=== PATIENT | male | born 1955 | race African-American/Black ===

== ENCOUNTER 2019-09-04 10:12 | Inpatient (IN) | payer MEDICARE, MEDICAID ==
[~2019-09-04] VITALS: Ht 167.6 cm; Wt 70.1 kg
--- NOTE | 2019-09-04 10:30 | Emergency Room Report ---
History of Present Illness General Chief Complaint: To Be Triaged Source: Patient Present Illness HPI 64-year-old male pretension, GERD, COPD, and AIDS, last CD4 count of 531, viral load less than 20, according to labs drawn on July 31, 2019, which was 1 month ago, comes to the ER for complaints of shortness of breath and chest pain for 1 week. He reports the chest pain is like an ache, wrapped his anterior chest, with associated cough with clear sputum production, he is not trying medications for symptoms, but reports he feels like his GERD is acting up because his doctor took him off his omeprazole 1 month ago. He denies fevers, hemoptysis, syncope, leg swelling, any other symptoms. Allergies: Uncoded Allergies: POLLEN (Allergy, Unknown, 09/04/19) Patient History Past Medical History: see triage record Reviewed Nursing Documentation: PMH: Agreed; PSxH: Agreed Review of Systems All Other Systems: negative except mentioned in HPI Physical Exam Sp02 EP Interpretation: reviewed, normal General Appearance: no apparent distress, alert, non-toxic Head: normocephalic Eyes: bilateral eye normal inspection, bilateral eye PERRL, bilateral eye EOMI ENT: normal ENT inspection, hearing grossly normal, normal pharynx, no angioedema, normal voice, moist mucus membranes Neck: normal inspection, full range of motion, supple, supple/symm/no masses Respiratory: chest non-tender, lungs clear, normal breath sounds, chest symmetrical, palpation of chest normal Cardiovascular #1: normal peripheral pulses, regular rate, rhythm Cardiovascular #2: 2+ radial (R), 2+ radial (L) Gastrointestinal: normal inspection, non tender, soft, no mass, no guarding, no rebound Rectal: deferred Genitourinary: normal inspection, no CVA tenderness Musculoskeletal: back normal, normal range of motion, no calf tenderness, gait/ station normal, Keron's Sign negative, non-tender Neurologic: alert, motor strength/tone normal, 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 EKG, chest x-ray unremarkable , do not have high suspicion for dissection or pulmonary embolism. Patient with GERD-like symptoms here, will give famotidine, aspirin, admit as initial work-up unremarkable except for creatinine 1.8 but troponin negative. Discussed with Dr. Arenas who agrees to admit to telemetry EKG Diagnostic Results EKG Time: 10:43 EP Interpretation: no stemi Rate: normal Rhythm: NSR ST Segments: no acute changes ASA given to the pt in ED: Yes Rhythm Strip Diag. Results Rhythm Strip Time: 11:25 EP Interpretation: yes Rate: 84 Rhythm: NSR, no PVC's, no ectopy Chest X-Ray Diagnostic Results Chest X-Ray Diagnostic Results : Chest X-Ray Ordered: Yes # of Views/Limited/Complete: 1 View Indication: Chest Pain EP Interpretation: Yes Interpretation: no consolidation, no effusion, no pneumothorax, no acute cardiopulmonary disease Impression: No acute disease Electronically Signed by: Payton Peace MD Disposition: ADMITTED INPATIENT Condition: Stable PAYTON PEACE M.D Sep 04, 2019 10:30
--- NOTE | 2019-09-04 10:33 | NUR ---
ED Nurse Note: ERMD assessing pt at triage.
--- NOTE | 2019-09-04 10:45 | NUR ---
ED Nurse Note: Pt walked into ER from home c/o cough, chest pain 03/28, and n/v. A+OX4. Patient states he has had the chest pain for about a week and the n/v for two days. He states that he has been having gastric reflux that turns into vomiting when he lays down or coughs. No SOB noted. Respirations are even and unlabored on room air. 20 g IV inserted to Right AC. EKG done. Labs sent down to lab. shelf filler applied.
[2019-09-04 11:06] VITALS: BP 121/87
[2019-09-04 11:06] LABS: BASOPHILS % (AUTO) 1.8 % (0.0-2.0); EOSINOPHILS % (AUTO) 1.3 % (0.0-3.0); HEMATOCRIT 50.7 % (42.0-52.0); HEMOGLOBIN 16.4 G/DL (14.2-18.0); LYMPHOCYTES % (AUTO) 37.5 % (20.0-45.0); MEAN CORPUSCULAR VOLUME 87 FL (80-99); MONOCYTES % (AUTO) 14.2 % (1.0-10.0); NEUTROPHILS % (AUTO) 45.2 % (45.0-75.0); PLATELET COUNT 216 K/UL (150-450); RED BLOOD COUNT 5.83 M/UL (4.70-6.10); RED CELL DISTRIBUTION WIDTH 10.8 % (11.6-14.8); WHITE BLOOD COUNT 5.2 K/UL (4.8-10.8)
[2019-09-04 11:13] LABS: ANION GAP 7 mmol/L (5-15); BLOOD UREA NITROGEN 22 mg/dL (7-18); CALCIUM 9.4 MG/DL (8.5-10.1); CARBON DIOXIDE 29 MMOL/L (21-32); CHLORIDE 102 MMOL/L (98-107); CREATININE 1.8 MG/DL (0.55-1.30); POTASSIUM 3.8 MMOL/L (3.5-5.1); SODIUM 138 MMOL/L (136-145)
[2019-09-04 11:20] LABS: ALANINE AMINOTRANSFERASE 18 U/L (12-78); ALBUMIN 4.2 G/DL (3.4-5.0); ALBUMIN/GLOBULIN RATIO 1.1 (1.0-2.7); ALKALINE PHOSPHATASE 84 U/L (46-116); ASPARTATE AMINO TRANSFERASE 14 U/L (15-37); BILIRUBIN,TOTAL 0.5 MG/DL (0.2-1.0)
--- NOTE | 2019-09-04 11:33 | Diagnostic Imaging Report ---
Indication: Chest pain Technique: One view of the chest Comparison: none Findings: Lungs and pleural spaces are clear. Heart size is normal. Impression: No acute process
--- NOTE | 2019-09-04 11:55 | NUR ---
ED Nurse Note: Per MD, water okay to give to patient. Water provided.
[2019-09-04] MEDS ORDERED: Aspirin Baby 81mg NG SCH (12:45)
--- NOTE | 2019-09-04 13:35 | NUR ---
ED Nurse Note: Report given to CHARLES Cortez. Patient brought up to unit with all belongings. Plan of care endorsed. Pt in stable condition.
[2019-09-04 13:38] VITALS: BP 125/92
[2019-09-04] MEDS ORDERED: TIVICAY50 MG ORAL (13:41)
[2019-09-04] MEDS ORDERED: LISINOPRIL10 MG ORAL (13:41)
[2019-09-04] MEDS ORDERED: METOPROLOL SUCC25 MG ORAL (13:41)
[2019-09-04] MEDS ORDERED: VITAMIN D31000 UNI4 PO (13:41)
[2019-09-04] MEDS ORDERED: ASPIRIN EC81 MG ORAL (13:41)
[2019-09-04] MEDS ORDERED: CHLORTHALIDONE25 MG ORAL (13:41)
[2019-09-04] MEDS ORDERED: PREZCOBIX 8001 EACH PO (13:41)
[2019-09-04] MEDS ORDERED: LATANOPROST 0.7.5 ML OP (13:43)
[2019-09-04] MEDS ORDERED: VENTOLIN HFA18 GM INH (13:43)
[2019-09-04] MEDS ORDERED: AZELASTINE137 MCG/0. NS (13:43)
[2019-09-04] MEDS ORDERED: VESICARE5 MG ORAL (13:43)
[2019-09-04] MEDS ORDERED: CRESTOR40 MG ORAL (13:43)
[2019-09-04] MEDS ORDERED: COMBIVENT RESPIM4 GM IH (13:43)
[2019-09-04] MEDS ORDERED: SIMBRINZA 1%-0.28 ML OP (13:43)
--- NOTE | 2019-09-04 13:50 | NUR ---
NURSE NOTES: Pt transferred from ED via gurney with RN and rehab technician. No c/o pain. Mild SOB noted. Noted the patient waling steady without assist. Bed in lowest position and locked. Side railsx2 up for safety. Call light within easy reach. Report received from Cristhian SOTO form ED. IV in RAC 20G SL patent and asymptomatic. Will continue to plan of care.
[2019-09-04 13:55] VITALS: BP 128/95
[2019-09-04] MEDS ORDERED: Azithromycin 250mg tab ORAL SCH (14:30)
[2019-09-04] MEDS ORDERED: Acetaminophen 500mg (ES) tab ORAL PRN (14:30)
--- NOTE | 2019-09-04 15:00 | Consultation ---
Consult Note Consult Note asked to eval at the request of dr roberts for elevated Cr 64-year-old male pretension, GERD, COPD, and AIDS, last CD4 count of 531, viral load less than 20, according to labs drawn on July 31, 2019, which was 1 month ago, comes to the ER for complaints of shortness of breath and chest pain for 1 week. He reports the chest pain is like an ache, wrapped his anterior chest, with associated cough with clear sputum production, he is not trying medications for symptoms, but reports he feels like his GERD is acting up because his doctor took him off his omeprazole 1 month ago. He denies fevers, hemoptysis, syncope, leg swelling, any other symptoms. Allergies: Uncoded Allergies: POLLEN (Allergy, Unknown, 09/04/19) interviewed data reviewed examined . Assessment/Plan Renal failure ? acute on chronic GERD COPD AIDS AZUL and Echo Urine studies UA per pulmonary monitor renal parameters per orders Luis Fernando Gasca MD Sep 04, 2019 15:00
[2019-09-04] MEDS: cefTRIAXone 1 GM in D5W 55 ML IVPB SCH (15:18)
[2019-09-04] MEDS: Solu-MEDROL 40mg Inj IVP SCH ×2 (15:18→21:18)
[2019-09-04] MEDS: Albuterol/Ipratropium 3ml neb HHN SCH ×2 (15:25→20:16)
[2019-09-04 16:00] VITALS: BP 131/94
--- NOTE | 2019-09-04 17:10 | NUR ---
NURSE NOTES: Dominic Pepe paged for clarification orders for patient's meds for HIV. Dominic Pepe. stated "Read my note". But no note or progress note available on the EMAR. Reminded the doctor there is no progress note available on the EMAR. Dr. Fajardo states "Have the family bring the meds from home. RN explained that no family or friend is available and the patient lives alone at home. He is upset that the RN called for clarification orders. Spoke to Pearl, pharmacist regarding the meds, will follow up the meds tomorrow from the patient's own primary doctor who prescribed the meds.
[2019-09-04] MEDS ORDERED: Darunavir 600mg tab ORAL SCH (18:00)
--- NOTE | 2019-09-04 19:20 | NUR ---
HAND-OFF: Report given to Bo SOTO. Pt remains stable.
--- NOTE | 2019-09-04 19:25 | NUR ---
NURSE NOTES: Pt received from Min, RN alert and oriented x4 with no acute s/s of distress noted. IV site asymptomatic and patent, on R ac 20g, saline lock. Bed in lowest position. Call light and belongings within reach.
[2019-09-04 20:00] VITALS: BP 125/89
--- NOTE | 2019-09-04 20:51 | NUR ---
NURSE NOTES: Pt c/o of cough and asking for cough syrup or throat lozenge for relief. Spoke with Dr. Orlando who gave order for Robitussin DM 10 ml PRN q4h for cough.
[2019-09-04] MEDS: Heparin 5000 units/ml inj SUBQ SCH (21:00)
--- NOTE | 2019-09-04 21:15 | Consultation ---
DATE OF CONSULTATION: 09/04/2019 INFECTIOUS DISEASE CONSULTATION REASON FOR CONSULT: Chronic obstructive pulmonary disease exacerbation and human immunodeficiency virus. HISTORY OF PRESENT ILLNESS: This is a 64-year-old male admitted today from home complaining of shortness of breath, coughing, chest pain for 7 days. He has history of human immunodeficiency virus, but it is in good control with a CD4 count of more than 500. Also has history of coronary artery disease. PAST MEDICAL HISTORY: Includes human immunodeficiency virus since 1990. The patient is currently getting Prezcobix and Tivicay. The last CD4 count is above 500 and a viral load is undetectable. Has chronic kidney disease, has had history of coronary artery disease, status post angioplasty. He says that he has history of gastroesophageal reflux disease. MEDICATIONS: Aspirin. ALLERGIES: Allergic to . SOCIAL HISTORY: Single. Smoking 10 cigarettes a day. Smokes marijuana. Denies other drugs and alcohol abuse. REVIEW OF SYSTEMS: No fever. No chills. Has nonproductive cough and shortness of breath and left-sided chest pain. No nausea. No vomiting. No diarrhea. No problem passing urine. VACCINATION HISTORY: He has history of flu vaccination this year and pneumonia vaccination in 2017. He also had herpes zoster vaccination. PHYSICAL EXAMINATION: VITAL SIGNS: Temperature 97.7, blood pressure 125/92, and pulse 82. GENERAL APPEARANCE: No acute distress. HEAD AND NECK: [place] conjunctiva. HEART: Normal rate. LUNGS: Clear. ABDOMEN: Soft and nontender. EXTREMITY: He has no edema. NEUROLOGIC: Awake, alert, and oriented x3. LABORATORY AND DIAGNOSTIC DATA: WBC 5.2, hemoglobin 16.4, hematocrit 50.7, and platelets is 216,000. Sodium 138, potassium 3.8, chloride 102, bicarbonate 29, BUN 22, creatinine 1.8, and glucose 100. Albumin is 4.2. IMPRESSION: 1. COPD exacerbation. 2. Human immunodeficiency virus. 3. Nicotine dependence. 4. Chest pain. 5. Kidney disease, likely chronic. 6. History of coronary artery disease. RECOMMENDATIONS: Continue Tivicay and substitute Prezista for Prezcobix. The patient may benefit from short term antibiotic with Zithromax and Rocephin for COPD. Needs to have a smoking cessation. At the end of my exam, I thank Dr. Arenas for involving me in the care of this patient. Mario Fajardo M.D. DR: DANIEL JOB#: [id number] CC:
[2019-09-04] MEDS: Latanoprost 0.005% Opth 2.5ml Soln BOTH EYES SCH (21:17)
[2019-09-04] MEDS: Guaifenesin/DM 10ml syrup ORAL PRN (21:17)
--- NOTE | 2019-09-04 22:30 | Cardiology Progress Note ---
Assessment/Plan Assessment/Plan The patient is seen and examined, full consult note is dictated. Objective Last 24 Hour Vital Signs Date Time Temp Pulse Resp B/P (MAP) Pulse Ox O2 Delivery O2 Flow Rate FiO2 09/04/19 20:16 85 18 100 Room Air 21 82 18 99 09/04/19 16:00 94 09/04/19 16:00 97.1 68 20 131/94 (106) 97 09/04/19 15:27 85 20 100 Room Air 21 88 18 98 09/04/19 14:02 Room Air 09/04/19 13:55 97.0 70 20 128/95 (106) 98 09/04/19 13:38 97.7 82 18 125/92 100 Room Air 09/04/19 13:35 97.7 90 18 121/87 99 Room Air 09/04/19 11:06 97.7 90 18 121/87 99 Room Air 09/04/19 11:05 90 18 Room Air 09/04/19 10:28 97.7 99 21 120/70 (87) 99 Room Air Laboratory Tests Test 09/04/19 10:45 09/04/19 22:00 White Blood Count 5.2 K/UL (4.8-10.8) Red Blood Count 5.83 M/UL (4.70-6.10) Hemoglobin 16.4 G/DL (14.2-18.0) Hematocrit 50.7 % (42.0-52.0) Mean Corpuscular Volume 87 FL (80-99) Mean Corpuscular Hemoglobin 28.2 PG (27.0-31.0) Mean Corpuscular Hemoglobin Concent 32.4 G/DL (32.0-36.0) Red Cell Distribution Width 10.8 % (11.6-14.8) L Platelet Count 216 K/UL (150-450) Mean Platelet Volume 8.1 FL (6.5-10.1) Neutrophils (%) (Auto) 45.2 % (45.0-75.0) Lymphocytes (%) (Auto) 37.5 % (20.0-45.0) Monocytes (%) (Auto) 14.2 % (1.0-10.0) H Eosinophils (%) (Auto) 1.3 % (0.0-3.0) Basophils (%) (Auto) 1.8 % (0.0-2.0) Sodium Level 138 MMOL/L (136-145) Potassium Level 3.8 MMOL/L (3.5-5.1) Chloride Level 102 MMOL/L (98-107) Carbon Dioxide Level 29 MMOL/L (21-32) Anion Gap 7 mmol/L (5-15) Blood Urea Nitrogen 22 mg/dL (7-18) H Creatinine 1.8 MG/DL (0.55-1.30) H Estimat Glomerular Filtration Rate 38.4 mL/min (>60) Glucose Level 100 MG/DL (74-106) Calcium Level 9.4 MG/DL (8.5-10.1) Total Bilirubin 0.5 MG/DL (0.2-1.0) Aspartate Amino Transf (AST/SGOT) 14 U/L (15-37) L Alanine Aminotransferase (ALT/SGPT) 18 U/L (12-78) Alkaline Phosphatase 84 U/L (46-116) Troponin I 0.000 ng/mL (0.000-0.056) Total Protein 7.9 G/DL (6.4-8.2) Albumin 4.2 G/DL (3.4-5.0) Globulin 3.7 g/dL Albumin/Globulin Ratio 1.1 (1.0-2.7) Urine Color Pending Urine Appearance Pending Urine pH Pending Urine Specific [place] Pending Urine Protein Pending Urine Glucose (UA) Pending Urine Ketones Pending Urine Blood Pending Urine Nitrite Pending Urine Bilirubin Pending Urine Urobilinogen Pending Urine Leukocyte Esterase Pending Urine RBC Pending Urine WBC Pending Urine Squamous Epithelial Cells Pending Urine Bacteria Pending Urine Random Sodium Pending Urine Opiates Screen Pending Urine Barbiturates Screen Pending Phencyclidine (PCP) Screen Pending Urine Amphetamines Screen Pending Urine Benzodiazepines Screen Pending Urine Cocaine Screen Pending Urine Marijuana (THC) Screen Pending Microbiology Date/Time Source Procedure Growth Status 09/04/19 17:00 Nasal Nares - Final Complete 09/04/19 17:00 Nasal Nares - Final Complete Nirmal Chapa MD Sep 04, 2019 22:30
[2019-09-04 22:32] LABS: APPEARANCE,URINE CLEAR; BILIRUBIN, URINE NEGATIVE (NEGATIVE); GLUCOSE, URINE (UA) NEGATIVE (NEGATIVE); KETONES,URINE NEGATIVE (NEGATIVE); LEUKOCYTE ESTERASE ,URINE NEGATIVE (NEGATIVE); NITRITE,URINE NEGATIVE (NEGATIVE); PH,URINE 7 (4.5-8.0); PROTEIN,URINE 1+ (NEGATIVE); UROBILINOGEN,URINE 4 MG/DL (0.0-1.0)
[2019-09-04 22:34] LABS: COLOR,URINE YELLOW
--- NOTE | 2019-09-04 22:40 | NUR ---
NURSE NOTES: Communicated with Dr. Chapa that pt is on rosuvastatin 40 mg PO at bedtime at home but is not continued per EMR d/t nonavailability of med in inpatient pharmacy. Per Dr. Chapa, pls place patient on atorvastatin 80 mg PO at bedside to substitute. Will carry out orders.
--- NOTE | 2019-09-04 22:43 | NUR ---
NURSE NOTES: Dr. Arenas made aware of positive urine drug tox screen for Marijuana. No new orders given.
[2019-09-05] VITALS: BP 131/93
[2019-09-05] MEDS: Albuterol/Ipratropium 3ml neb HHN SCH ×5 (01:34→23:46)
[2019-09-05 04:00] VITALS: BP 122/71
--- NOTE | 2019-09-05 05:25 | NUR ---
NURSE NOTES: Pt c/o of acid reflux, communicated with Dr. Arenas who gave order for Mylanta 30 ml PO q4h PRN for heartburn. Will carry out orders.
[2019-09-05] MEDS: Solu-MEDROL 40mg Inj IVP SCH ×3 (05:53→21:18)
--- NOTE | 2019-09-05 07:20 | NUR ---
HAND-OFF: Report given to CHARLES Beaulieu. Plan of care endorsed.
--- NOTE | 2019-09-05 07:30 | NUR ---
NURSE NOTES: received patient report from deep kline. patient is on bed awake. no tin acute distress. bed is low and locked for safety. will fou on patients HIV meds. will follow plan of care.
[2019-09-05 07:34] LABS: BASOPHILS % (AUTO) 0.4 % (0.0-2.0); HEMATOCRIT 45.3 % (42.0-52.0); HEMOGLOBIN 15.2 G/DL (14.2-18.0); MEAN CORPUSCULAR VOLUME 86 FL (80-99); MONOCYTES % (AUTO) 3.3 % (1.0-10.0); NEUTROPHILS % (AUTO) 81.3 % (45.0-75.0); PLATELET COUNT 199 K/UL (150-450); RED BLOOD COUNT 5.24 M/UL (4.70-6.10); RED CELL DISTRIBUTION WIDTH 10.6 % (11.6-14.8); WHITE BLOOD COUNT 6.3 K/UL (4.8-10.8)
[2019-09-05 08:00] VITALS: BP 149/115
[2019-09-05 08:11] LABS: ALANINE AMINOTRANSFERASE 15 U/L (12-78); ALBUMIN 3.8 G/DL (3.4-5.0); ALKALINE PHOSPHATASE 67 U/L (46-116); ANION GAP 7 mmol/L (5-15); ASPARTATE AMINO TRANSFERASE 9 U/L (15-37); BILIRUBIN,TOTAL 0.3 MG/DL (0.2-1.0); BLOOD UREA NITROGEN 25 mg/dL (7-18); CALCIUM 9.6 MG/DL (8.5-10.1); CARBON DIOXIDE 31 MMOL/L (21-32); CHLORIDE 103 MMOL/L (98-107); CHOLESTEROL 184 MG/DL (< 200); CREATININE 1.7 MG/DL (0.55-1.30); HDL CHOLESTEROL 44 MG/DL (40-60); POTASSIUM 4.7 MMOL/L (3.5-5.1); SODIUM 141 MMOL/L (136-145); TRIGLYCERIDES 26 MG/DL (30-150)
[2019-09-05 08:25] LABS: CREATINE KINASE 231 U/L (26-308); GAMMA GLUTAMYL TRANSPEPTIDASE 30 U/L (5-85); PHOSPHORUS 3.3 MG/DL (2.5-4.9)
[2019-09-05] MEDS: cefTRIAXone 1 GM in D5W 55 ML IVPB SCH (08:39)
[2019-09-05] MEDS: Aspirin EC 81mg tab ORAL SCH (08:40)
[2019-09-05] MEDS: Vitamin D 1000 IU Tab ORAL SCH (08:40)
[2019-09-05] MEDS: Azithromycin 250mg tab ORAL SCH (08:40)
[2019-09-05] MEDS: Heparin 5000 units/ml inj SUBQ SCH ×2 (08:41→21:00)
[2019-09-05] MEDS ORDERED: Dolutegravir Sodium 50mg tab ORAL SCH ×2 (09:00)
[2019-09-05] MEDS ORDERED: Metoprolol Succinate XL 25mg tab ORAL SCH (09:00)
[2019-09-05] MEDS ORDERED: Lisinopril 2.5mg tab ORAL SCH (09:00)
--- NOTE | 2019-09-05 10:17 | NUR ---
CARDIOLOGY: 2-D ECHO REPORT Normal left ventricular chamber size, systolic function and wall motion . Left ventricular ejection fraction estimated to be 65-70 %. No evidence of left ventricular hypertrophy. No evidence of pericardial effusion. All other cardiac chamber sizes are within normal limits. Focal aortic valve sclerosis with adequate cusp excursion. Thickened mitral valve leaflets with normal excursion. Mitral annulus and aortic root calcification. Normal pulmonic valve structure. Normal tricuspid valve structure. IVC at normal size with physiologic collapse. A color flow and spectral Doppler study was performed and revealed: No aortic insufficiency. Trace mitral regurgitation. Mitral inflow indicates normal left ventricular diastolic function. Trace tricuspid regurgitation. Tricuspid systolic velocities suggests peak right ventricular systolic pressure of 15 mmHg.
[2019-09-05 12:00] VITALS: BP 155/112
--- NOTE | 2019-09-05 12:20 | Pulmonology Progress Note ---
Assessment/Plan Assessment/Plan Pulmonary Consultation HPI Patient is a 64-year-old male with past medical history of COPD, and AIDS, last CD4 count of 531, viral load less than 20, GERD, admitted c/o shortness of breath and chest pain for 1 week. He reports the chest pain is like an ache, wrapped his anterior chest, with associated cough with clear sputum production, He denies fevers, hemoptysis, syncope, leg swelling, any other symptoms. Allergies: POLLEN Past Medical History: Chronic Obstructive Pulmonary Disease, AIDS, GERD All Other Systems: negative except mentioned in HPI Physical Exam Vital Signs noted General Appearance: no apparent distress, alert, non-toxic Head: normocephalic Eyes: bilateral eye normal inspection, bilateral eye PERRL, bilateral eye EOMI ENT: normal ENT inspection, hearing grossly normal, normal pharynx, moist mucus membranes Neck: normal inspection, full range of motion, supple, supple/symm/no masses, no LN Respiratory: chest non-tender, lungs clear, normal breath sounds, chest symmetrical Cardiovascular: normal peripheral pulses, regular rate, rhythm, HS1, HS2 normal Gastrointestinal: normal inspection, non tender, soft, no mass, no guarding, no rebound Musculoskeletal: back normal, normal range of motion, no calf tenderness, gait/ station normal, Keron's Sign negative, non-tender Neurologic: alert, motor strength/tone normal, 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, sensory intact, responsive, speech normal Impression: Chronic Obstructive Pulmonary Disease Exacerbation Chest pain HIV with las CD4 count 531, on ARV GERD Plan IV Solumedrol HHN O2 PRN INSURANCE CHECKER Medications PPX Monitor labs EKG: no stemi Rate: normal Rhythm: NSR ST Segments: no acute changes Chest X-Ray: no consolidation, no effusion, no pneumothorax, no acute cardiopulmonary disease Subjective ROS Limited/Unobtainable: No Allergies: Uncoded Allergies: POLLEN (Allergy, Unknown, 09/04/19) Objective Last 24 Hour Vital Signs Date Time Temp Pulse Resp B/P (MAP) Pulse Ox O2 Delivery O2 Flow Rate FiO2 09/05/19 12:00 99.5 111 16 155/112 (126) 94 09/05/19 09:00 Room Air 09/05/19 08:40 100 149/115 09/05/19 08:40 149/115 09/05/19 08:13 100 20 100 Room Air 21 102 20 98 12/18/19 08:00 98.2 105 15 149/115 (126) 98 09/05/19 07:36 94 09/05/19 04:00 98.0 74 19 122/71 (88) 96 09/05/19 04:00 101 09/05/19 02:36 88 19 99 Facial 24 09/05/19 01:30 101 18 100 Room Air 21 100 18 98 09/05/19 01:00 97 19 100 Facial 23 09/05/19 00:00 83 09/05/19 00:00 97.0 67 19 131/93 (106) 97 09/04/19 22:30 78 18 100 Facial 24 09/04/19 21:00 Room Air 09/04/19 20:16 85 18 100 Room Air 21 82 18 99 09/04/19 20:00 68 09/04/19 20:00 97.2 72 19 125/89 (101) 98 09/04/19 16:00 94 09/04/19 16:00 97.1 68 20 131/94 (106) 97 09/04/19 15:27 85 20 100 Room Air 21 88 18 98 09/04/19 14:02 Room Air 09/04/19 13:55 97.0 70 20 128/95 (106) 98 09/04/19 13:38 97.7 82 18 125/92 100 Room Air 09/04/19 13:35 97.7 90 18 121/87 99 Room Air Intake and Output 09/04/19 09/05/19 19:00 07:00 Intake Total 300 ml 450 ml Balance 300 ml 450 ml Intake Oral 300 ml 450 ml # Voids 2 2 Microbiology Date/Time Source Procedure Growth Status 09/04/19 17:00 Nasal Nares - Final Complete 09/04/19 17:00 Nasal Nares - Final Complete Laboratory Tests 09/04/19 22:00: Urine Color Yellow, Urine Appearance Clear, Urine pH 7, Urine Specific [place] 1.010, Urine Protein 1+H, Urine Glucose (UA) Negative, Urine Ketones Negative, Urine Blood Negative, Urine Nitrite Negative, Urine Bilirubin Negative, Urine Urobilinogen 4H, Urine Leukocyte Esterase Negative, Urine RBC 0-2H, Urine WBC 0- 2, Urine Squamous Epithelial Cells None, Urine Bacteria None, Urine Random Sodium 195H, Urine Opiates Screen Negative, Urine Barbiturates Screen Negative, Phencyclidine (PCP) Screen Negative, Urine Amphetamines Screen Negative, Urine Benzodiazepines Screen Negative, Urine Cocaine Screen Negative, Urine Marijuana (THC) Screen PositiveH 09/05/19 06:23: White Blood Count 6.3, Red Blood Count 5.24, Hemoglobin 15.2, Hematocrit 45.3, Mean Corpuscular Volume 86, Mean Corpuscular Hemoglobin 29.0, Mean Corpuscular Hemoglobin Concent 33.6, Red Cell Distribution Width 10.6L, Platelet Count 199, Mean Platelet Volume 8.6, Neutrophils (%) (Auto) 81.3H, Lymphocytes (%) (Auto) 15.0L, Monocytes (%) (Auto) 3.3, Eosinophils (%) (Auto) 0.0, Basophils (%) (Auto ) 0.4, Sodium Level 141, Potassium Level 4.7, Chloride Level 103, Carbon Dioxide Level 31, Anion Gap 7, Blood Urea Nitrogen 25H, Creatinine 1.7H, Estimat Glomerular Filtration Rate 49.7, Glucose Level 126H, Hemoglobin A1c 5.2 , Uric Acid 5.5, Calcium Level 9.6, Phosphorus Level 3.3, Magnesium Level 2.2, Total Bilirubin 0.3, Gamma Glutamyl Transpeptidase 30, Aspartate Amino Transf ( AST/SGOT) 9L, Alanine Aminotransferase (ALT/SGPT) 15, Alkaline Phosphatase 67, Total Creatine Kinase 231, C-Reactive Protein, Quantitative < 0.4, Pro-B-Type Natriuretic Peptide 93, Total Protein 7.5, Albumin 3.8, Globulin 3.7, Albumin/ Globulin Ratio 1.0, Triglycerides Level 26L, Cholesterol Level 184, LDL Cholesterol 136H, HDL Cholesterol 44, Cholesterol/HDL Ratio 4.2, Thyroid Stimulating Hormone (TSH) 0.190L Current Medications Medications (Trade) Dose Ordered Sig/Vaishnavi Route PRN Reason Start Time Stop Time Status Last Admin Dose Admin Acetaminophen (Tylenol) 500 mg Q4H PRN ORAL Mild Pain/Temp > 100.5 09/04/19 14:30 10/04/19 14:29 Al Hydroxide/Mg Hydroxide (Mylanta) 30 ml EVERY 4 HOURS PRN ORAL Per rx protocol 09/05/19 05:30 10/05/19 05:29 09/05/19 10:22 Albuterol/ Ipratropium (Albuterol/ Ipratropium) 3 ml Q6HRT HHN 09/04/19 15:00 09/09/19 14:59 09/05/19 08:17 Aspirin (Ecotrin) 81 mg DAILY ORAL 09/05/19 09:00 10/05/19 08:59 09/05/19 08:40 Atorvastatin Calcium (Lipitor) 80 mg BEDTIME ORAL 09/05/19 21:00 10/05/19 20:59 Azithromycin (Zithromax) 250 mg DAILY ORAL 09/05/19 09:00 09/12/19 08:59 09/05/19 08:40 Ceftriaxone Sodium 1 gm/ Dextrose 55 ml @ 110 mls/hr DAILY IVPB 09/04/19 15:00 09/11/19 14:59 09/05/19 08:39 Chlorthalidone (Chlorthalidone) 25 mg DAILY ORAL 09/05/19 09:00 10/05/19 08:59 09/05/19 08:41 Darunavir (Prezista) 600 mg TWICE A DAY ORAL 09/04/19 18:00 10/04/19 17:59 UNV Dolutegravir Sodium (Tivicay) 50 mg DAILY ORAL 09/05/19 09:00 10/05/19 08:59 UNV Guaifenesin/ Dextromethorphan (Robitussin DM Syrup) 10 ml Q4H PRN ORAL For Cough 09/04/19 21:00 10/04/19 20:59 09/04/19 21:17 Heparin Sodium (Porcine) (Heparin 5000 units/ml) 5,000 units EVERY 12 HOURS SUBQ 09/04/19 21:00 10/04/19 20:59 Latanoprost (Xalatan) 1 drop BEDTIME BOTH EYES 09/04/19 21:00 10/04/19 20:59 09/04/19 21:17 Lisinopril (ZestriL) 5 mg DAILY ORAL 09/05/19 09:00 10/05/19 08:59 09/05/19 08:40 Methylprednisolone Sodium Succinate (Solu-MEDROL) 40 mg EVERY 8 HOURS IVP 09/04/19 15:00 10/04/19 14:59 09/05/19 05:53 Metoprolol Succinate (Toprol XL) 25 mg DAILY ORAL 09/05/19 09:00 10/05/19 08:59 09/05/19 08:40 Pantoprazole (Protonix) 40 mg DAILY ORAL 09/05/19 09:00 10/05/19 08:59 09/05/19 08:40 Solifenacin (Vesicare) 5 mg DAILY ORAL 09/05/19 09:00 10/05/19 08:59 09/05/19 08:41 Vitamin D (Vitamin D) 1,000 intlu DAILY ORAL 09/05/19 09:00 10/05/19 08:59 09/05/19 08:40 Vishnu Orlando MD Sep 05, 2019 12:20
--- NOTE | 2019-09-05 15:10 | Infectious Diseases Prog Note ---
Assessment/Plan Assessment/Plan IMPRESSION: 1. COPD exacerbation. 2. Human immunodeficiency virus. 3. Nicotine dependence. 4. Chest pain. 5. Kidney disease, likely chronic. 6. History of coronary artery disease. RECOMMENDATIONS: Continue Tivicay and Prezcobix, ordered from outside pharmacy Continue Zithromax and Rocephin Subjective ROS Limited/Unobtainable: No Constitutional: Reports: no symptoms Respiratory: Reports: dry cough Gastrointestinal/Abdominal: Reports: other - acid relux, decreased appetite Genitourinary: Reports: no symptoms Allergies: Uncoded Allergies: POLLEN (Allergy, Unknown, 09/04/19) Objective Vital Signs Last 24 Hour Vital Signs Date Time Temp Pulse Resp B/P (MAP) Pulse Ox O2 Delivery O2 Flow Rate FiO2 09/05/19 13:41 99 20 99 Room Air 21 100 20 97 09/05/19 12:00 99.5 111 16 155/112 (126) 94 09/05/19 11:40 111 09/05/19 09:00 Room Air 09/05/19 08:40 100 149/115 09/05/19 08:40 149/115 09/05/19 08:13 100 20 100 Room Air 21 102 20 98 09/05/19 08:00 98.2 105 15 149/115 (126) 98 09/05/19 07:36 94 09/05/19 04:00 98.0 74 19 122/71 (88) 96 09/05/19 04:00 101 09/05/19 02:36 88 19 99 Facial 24 09/05/19 01:30 101 18 100 Room Air 21 100 18 98 09/05/19 01:00 97 19 100 Facial 23 09/05/19 00:00 83 09/05/19 00:00 97.0 67 19 131/93 (106) 97 09/04/19 22:30 78 18 100 Facial 24 09/04/19 21:00 Room Air 09/04/19 20:16 85 18 100 Room Air 21 82 18 99 09/04/19 20:00 68 09/04/19 20:00 97.2 72 19 125/89 (101) 98 09/04/19 16:00 94 09/04/19 16:00 97.1 68 20 131/94 (106) 97 09/04/19 15:27 85 20 100 Room Air 21 88 18 98 Height (Feet): 5 Height (Inches): 6.00 Weight (Pounds): 154 General Appearance: no acute distress HEENT: mucous membranes moist Respiratory/Chest: lungs clear Cardiovascular: normal rate Abdomen: soft, non tender Extremities: no edema Neurologic/Psychiatric: alert, oriented x 3, responsive Microbiology Date/Time Source Procedure Growth Status 09/04/19 17:00 Nasal Nares - Final Complete 09/04/19 17:00 Nasal Nares - Final Complete Laboratory Tests Test 09/04/19 22:00 09/05/19 06:23 Urine Color Yellow Urine Appearance Clear Urine pH 7 (4.5-8.0) Urine Specific [place] 1.010 (1.005-1.035) Urine Protein 1+ (NEGATIVE) H Urine Glucose (UA) Negative (NEGATIVE) Urine Ketones Negative (NEGATIVE) Urine Blood Negative (NEGATIVE) Urine Nitrite Negative (NEGATIVE) Urine Bilirubin Negative (NEGATIVE) Urine Urobilinogen 4 MG/DL (0.0-1.0) H Urine Leukocyte Esterase Negative (NEGATIVE) Urine RBC 0-2 /HPF (0 - 0) H Urine WBC 0-2 /HPF (0 - 0) Urine Squamous Epithelial Cells None /LPF (NONE/OCC) Urine Bacteria None /HPF (NONE) Urine Random Sodium 195 mmol/L (20-110) H Urine Opiates Screen Negative (NEGATIVE) Urine Barbiturates Screen Negative (NEGATIVE) Phencyclidine (PCP) Screen Negative (NEGATIVE) Urine Amphetamines Screen Negative (NEGATIVE) Urine Benzodiazepines Screen Negative (NEGATIVE) Urine Cocaine Screen Negative (NEGATIVE) Urine Marijuana (THC) Screen Positive (NEGATIVE) H White Blood Count 6.3 K/UL (4.8-10.8) Red Blood Count 5.24 M/UL (4.70-6.10) Hemoglobin 15.2 G/DL (14.2-18.0) Hematocrit 45.3 % (42.0-52.0) Mean Corpuscular Volume 86 FL (80-99) Mean Corpuscular Hemoglobin 29.0 PG (27.0-31.0) Mean Corpuscular Hemoglobin Concent 33.6 G/DL (32.0-36.0) Red Cell Distribution Width 10.6 % (11.6-14.8) L Platelet Count 199 K/UL (150-450) Mean Platelet Volume 8.6 FL (6.5-10.1) Neutrophils (%) (Auto) 81.3 % (45.0-75.0) H Lymphocytes (%) (Auto) 15.0 % (20.0-45.0) L Monocytes (%) (Auto) 3.3 % (1.0-10.0) Eosinophils (%) (Auto) 0.0 % (0.0-3.0) Basophils (%) (Auto) 0.4 % (0.0-2.0) Sodium Level 141 MMOL/L (136-145) Potassium Level 4.7 MMOL/L (3.5-5.1) Chloride Level 103 MMOL/L (98-107) Carbon Dioxide Level 31 MMOL/L (21-32) Anion Gap 7 mmol/L (5-15) Blood Urea Nitrogen 25 mg/dL (7-18) H Creatinine 1.7 MG/DL (0.55-1.30) H Estimat Glomerular Filtration Rate 49.7 mL/min (>60) Glucose Level 126 MG/DL (74-106) H Hemoglobin A1c 5.2 % (4.3-6.0) Uric Acid 5.5 MG/DL (2.6-7.2) Calcium Level 9.6 MG/DL (8.5-10.1) Phosphorus Level 3.3 MG/DL (2.5-4.9) Magnesium Level 2.2 MG/DL (1.8-2.4) Total Bilirubin 0.3 MG/DL (0.2-1.0) Gamma Glutamyl Transpeptidase 30 U/L (5-85) Aspartate Amino Transf (AST/SGOT) 9 U/L (15-37) L Alanine Aminotransferase (ALT/SGPT) 15 U/L (12-78) Alkaline Phosphatase 67 U/L (46-116) Total Creatine Kinase 231 U/L (26-308) C-Reactive Protein, Quantitative < 0.4 mg/dL (0.00-0.90) Pro-B-Type Natriuretic Peptide 93 pg/mL (0-125) Total Protein 7.5 G/DL (6.4-8.2) Albumin 3.8 G/DL (3.4-5.0) Globulin 3.7 g/dL Albumin/Globulin Ratio 1.0 (1.0-2.7) Triglycerides Level 26 MG/DL (30-150) L Cholesterol Level 184 MG/DL (< 200) LDL Cholesterol 136 mg/dL (<100) H HDL Cholesterol 44 MG/DL (40-60) Cholesterol/HDL Ratio 4.2 (3.3-4.4) Thyroid Stimulating Hormone (TSH) 0.190 uiU/mL (0.358-3.740) Current Medications Medications (Trade) Dose Ordered Sig/Vaishnavi Route PRN Reason Start Time Stop Time Status Last Admin Dose Admin Acetaminophen (Tylenol) 500 mg Q4H PRN ORAL Mild Pain/Temp > 100.5 09/04/19 14:30 10/04/19 14:29 Al Hydroxide/Mg Hydroxide (Mylanta) 30 ml EVERY 4 HOURS PRN ORAL Per rx protocol 09/05/19 05:30 10/05/19 05:29 09/05/19 10:22 Albuterol/ Ipratropium (Albuterol/ Ipratropium) 3 ml Q6HRT HHN 09/04/19 15:00 09/09/19 14:59 09/05/19 13:43 Aspirin (Ecotrin) 81 mg DAILY ORAL 09/05/19 09:00 10/05/19 08:59 09/05/19 08:40 Atorvastatin Calcium (Lipitor) 80 mg BEDTIME ORAL 09/05/19 21:00 10/05/19 20:59 Azithromycin (Zithromax) 250 mg DAILY ORAL 09/05/19 09:00 09/12/19 08:59 09/05/19 08:40 Ceftriaxone Sodium 1 gm/ Dextrose 55 ml @ 110 mls/hr DAILY IVPB 09/04/19 15:00 09/11/19 14:59 09/05/19 08:39 Chlorthalidone (Chlorthalidone) 25 mg DAILY ORAL 09/05/19 09:00 10/05/19 08:59 09/05/19 08:41 Darunavir (Prezista) 600 mg TWICE A DAY ORAL 09/04/19 18:00 10/04/19 17:59 UNV Dolutegravir Sodium (Tivicay) 50 mg DAILY ORAL 09/05/19 09:00 10/05/19 08:59 UNV Guaifenesin/ Dextromethorphan (Robitussin DM Syrup) 10 ml Q4H PRN ORAL For Cough 09/04/19 21:00 10/04/19 20:59 09/04/19 21:17 Heparin Sodium (Porcine) (Heparin 5000 units/ml) 5,000 units EVERY 12 HOURS SUBQ 09/04/19 21:00 10/04/19 20:59 Latanoprost (Xalatan) 1 drop BEDTIME BOTH EYES 09/04/19 21:00 10/04/19 20:59 09/04/19 21:17 Lisinopril (ZestriL) 5 mg DAILY ORAL 09/05/19 09:00 10/05/19 08:59 09/05/19 08:40 Methylprednisolone Sodium Succinate (Solu-MEDROL) 40 mg EVERY 8 HOURS IVP 09/04/19 15:00 10/04/19 14:59 09/05/19 13:51 Metoprolol Succinate (Toprol XL) 25 mg DAILY ORAL 09/05/19 09:00 10/05/19 08:59 09/05/19 08:40 Pantoprazole (Protonix) 40 mg DAILY ORAL 09/05/19 09:00 10/05/19 08:59 09/05/19 08:40 Solifenacin (Vesicare) 5 mg DAILY ORAL 09/05/19 09:00 10/05/19 08:59 09/05/19 08:41 Vitamin D (Vitamin D) 1,000 intlu DAILY ORAL 09/05/19 09:00 10/05/19 08:59 09/05/19 08:40 Mario Fajardo MD Sep 05, 2019 15:10
--- NOTE | 2019-09-05 15:10 | Nephrology Progress Note ---
Assessment/Plan Problem List: (1) Renal failure (ARF), acute on chronic (2) COPD (chronic obstructive pulmonary disease) (3) AIDS (acquired immune deficiency syndrome) Assessment Renal failure ? acute on chronic GERD COPD AIDS Plan THC in urine AZUL Kidney 2 D Echo Urine studies UA per pulmonary monitor renal parameters per orders Subjective ROS Limited/Unobtainable: No Constitutional: Reports: malaise Objective Objective Last 24 Hour Vital Signs Date Time Temp Pulse Resp B/P (MAP) Pulse Ox O2 Delivery O2 Flow Rate FiO2 09/05/19 13:41 99 20 99 Room Air 21 100 20 97 09/05/19 12:00 99.5 111 16 155/112 (126) 94 09/05/19 11:40 111 09/05/19 09:00 Room Air 09/05/19 08:40 100 149/115 09/05/19 08:40 149/115 09/05/19 08:13 100 20 100 Room Air 21 102 20 98 09/05/19 08:00 98.2 105 15 149/115 (126) 98 09/05/19 07:36 94 09/05/19 04:00 98.0 74 19 122/71 (88) 96 09/05/19 04:00 101 09/05/19 02:36 88 19 99 Facial 24 09/05/19 01:30 101 18 100 Room Air 21 100 18 98 09/05/19 01:00 97 19 100 Facial 23 09/05/19 00:00 83 09/05/19 00:00 97.0 67 19 131/93 (106) 97 09/04/19 22:30 78 18 100 Facial 24 09/04/19 21:00 Room Air 09/04/19 20:16 85 18 100 Room Air 21 82 18 99 09/04/19 20:00 68 09/04/19 20:00 97.2 72 19 125/89 (101) 98 09/04/19 16:00 94 09/04/19 16:00 97.1 68 20 131/94 (106) 97 09/04/19 15:27 85 20 100 Room Air 21 88 18 98 Intake and Output 09/04/19 09/05/19 19:00 07:00 Intake Total 300 ml 450 ml Balance 300 ml 450 ml Intake Oral 300 ml 450 ml # Voids 2 2 Laboratory Tests 09/04/19 22:00: Urine Color Yellow, Urine Appearance Clear, Urine pH 7, Urine Specific [place] 1.010, Urine Protein 1+H, Urine Glucose (UA) Negative, Urine Ketones Negative, Urine Blood Negative, Urine Nitrite Negative, Urine Bilirubin Negative, Urine Urobilinogen 4H, Urine Leukocyte Esterase Negative, Urine RBC 0-2H, Urine WBC 0- 2, Urine Squamous Epithelial Cells None, Urine Bacteria None, Urine Random Sodium 195H, Urine Opiates Screen Negative, Urine Barbiturates Screen Negative, Phencyclidine (PCP) Screen Negative, Urine Amphetamines Screen Negative, Urine Benzodiazepines Screen Negative, Urine Cocaine Screen Negative, Urine Marijuana (THC) Screen PositiveH 09/05/19 06:23: White Blood Count 6.3, Red Blood Count 5.24, Hemoglobin 15.2, Hematocrit 45.3, Mean Corpuscular Volume 86, Mean Corpuscular Hemoglobin 29.0, Mean Corpuscular Hemoglobin Concent 33.6, Red Cell Distribution Width 10.6L, Platelet Count 199, Mean Platelet Volume 8.6, Neutrophils (%) (Auto) 81.3H, Lymphocytes (%) (Auto) 15.0L, Monocytes (%) (Auto) 3.3, Eosinophils (%) (Auto) 0.0, Basophils (%) (Auto ) 0.4, Sodium Level 141, Potassium Level 4.7, Chloride Level 103, Carbon Dioxide Level 31, Anion Gap 7, Blood Urea Nitrogen 25H, Creatinine 1.7H, Estimat Glomerular Filtration Rate 49.7, Glucose Level 126H, Hemoglobin A1c 5.2 , Uric Acid 5.5, Calcium Level 9.6, Phosphorus Level 3.3, Magnesium Level 2.2, Total Bilirubin 0.3, Gamma Glutamyl Transpeptidase 30, Aspartate Amino Transf ( AST/SGOT) 9L, Alanine Aminotransferase (ALT/SGPT) 15, Alkaline Phosphatase 67, Total Creatine Kinase 231, C-Reactive Protein, Quantitative < 0.4, Pro-B-Type Natriuretic Peptide 93, Total Protein 7.5, Albumin 3.8, Globulin 3.7, Albumin/ Globulin Ratio 1.0, Triglycerides Level 26L, Cholesterol Level 184, LDL Cholesterol 136H, HDL Cholesterol 44, Cholesterol/HDL Ratio 4.2, Thyroid Stimulating Hormone (TSH) 0.190L Height (Feet): 5 Height (Inches): 6.00 Weight (Pounds): 154 General Appearance: no apparent distress Cardiovascular: tachycardia Respiratory/Chest: decreased breath sounds Abdomen: soft, distended Luis Fernando Gasca MD Sep 05, 2019 15:10
--- NOTE | 2019-09-05 15:30 | NUR ---
NURSE NOTES: left a message to samantha freeman regarding regarding patients discharge tonight after HD. Addendum: 09/05/19 at 1531 by ADRIAN HERNANDEZ RN david serrano note.
[2019-09-05 16:00] VITALS: BP 145/100
--- NOTE | 2019-09-05 17:00 | Consultation ---
DATE OF CONSULTATION: 09/05/2019 GASTROENTEROLOGY CONSULTATION CONSULTING PHYSICIAN: Dontae Prater M.D. CHIEF COMPLAINT: I was asked to see this patient for evaluation of gastroesophageal symptoms. HISTORY OF PRESENT ILLNESS: The patient is a pleasant 64-year-old man with multiple medical problems, which are outlined below who was admitted for chest pain. The patient does have coronary artery disease and has had a coronary artery stent placed in the past. Also he had a longstanding history of gastroesophageal reflux disease and has been on proton pump inhibitor for approximately 3 years. More recently, he was advised to discontinue his daily use of proton pump inhibitor due to the potential long-term side effects. He has been taking intermittently in the same time. However, he has noted that his reflux symptoms have gotten worse. About 4 days ago, the patient believes he may have had episodes of food poisoning because he had some episodes of nausea and vomiting. His reflux symptoms got worse and he began experiencing substernal chest pressure, which brought him to the hospital. The patient does note a longstanding history of intermittent pyrosis, which he attributes to classic reflux. The burning goes all the way to his throat. He has had 2 colonoscopies in the past, the last one being in 2013. He has been told he had multiple polyps removed during both the colonoscopies. He has also had one endoscopy done in 2012. PAST MEDICAL HISTORY: History of obstructive sleep apnea, COPD, hypertension, gastroesophageal reflux disease, coronary artery disease status post coronary artery stent placement, hypertension, hypercholesteremia, glaucoma, urolithiasis. FAMILY HISTORY: Noncontributory. PAST SURGICAL HISTORY: Status post surgery. SOCIAL HISTORY: The patient does not drink alcohol, but he smokes 10 to 11 marijuana cigarettes for medical purposes. REVIEW OF SYSTEMS: Otherwise negative. MEDICATIONS: See the chart list for details. PHYSICAL EXAMINATION: GENERAL: Well-developed, well-nourished man, seen in his room. HEENT: Normocephalic and atraumatic. Sclerae anicteric. Oropharynx clear. NECK: Supple. CHEST: Clear to auscultation. CARDIOVASCULAR: Revealed a regular rate. ABDOMEN: Soft. EXTREMITIES: Revealed no edema. LABORATORY DATA: Noted. ASSESSMENT: This patient presents with atypical chest pain, which needs careful cardiac evaluation given his history of coronary artery disease. However once cleared from a cardiac standpoint, then the patient would need gastrointestinal evaluation. He should have a repeat endoscopy at this time to evaluate his upper GI tract and also he needs a followup colonoscopy for his history of polyps. These can be done potentially as an outpatient should the patient be discharged. In the meantime, he should be placed on some type of acid suppression therapy on a long-term basis by giving him famotidine for this purpose. RECOMMENDATIONS: 1. Famotidine 40 mg p.o. at bedtime long-term. 2. Reflux precautions. 3. Elevate head of bed. 4. Endoscopy and colonoscopy at a later date. Thank you for asking me to participate in the care of this patient. Dontae Prater M.D. DR: JM JOB#: [id number] CC: OLINDA
[2019-09-05] MEDS: DOLUTEGRAVIR SODIUM 50 MG ORAL SCH (17:59)
[2019-09-05] MEDS: PREZCOBIX ORAL SCH (17:59)
--- NOTE | 2019-09-05 19:19 | NUR ---
HAND-OFF: Report given to mike kline.
--- NOTE | 2019-09-05 19:20 | NUR ---
NURSE NOTES: Received report from CHARLES Beaulieu. Pt is awake, lying supine; resting comfortably. No signs of acute distress noted. Denies any pain at this time. AOx4; able to make needs known. Checked IV site; patent and flushed. No erythema, bleeding or infiltration noted. Bed at lowest position, Brakes on, Siderails upx2. Call light within reach. Will continue to monitor.
[2019-09-05] MEDS: Acetylcysteine 20% Soln 4ml HHN SCH ×2 (19:45→23:46)
[2019-09-05 20:00] VITALS: BP 149/93
--- NOTE | 2019-09-05 20:18 | Diagnostic Imaging Report ---
Indication: Abnormal renal function Technique: US Renal Comp Comparison: None Findings: Right kidney measures 9 cm in length. Left kidney measures 8.9 cm in length. Both kidneys demonstrate normal echogenicity. Punctate subcentimeter echogenic foci are noted in the kidneys bilaterally which may represent vascular calcifications or nonobstructing stones. No evidence of hydronephrosis bilaterally. Prostate measures 3.2 x 2.5 x 2.9 cm/16.2 cc. Bladder is unremarkable in appearance. IMPRESSION: * Renal echogenicity within normal limits. * Punctate subcentimeter echogenic foci in the bilateral kidneys may be related to vascular calcifications or nonobstructing stones. No evidence of hydronephrosis bilaterally.
[2019-09-05] MEDS: Atorvastatin 80mg tab ORAL SCH (21:18)
[2019-09-05] MEDS: Latanoprost 0.005% Opth 2.5ml Soln BOTH EYES SCH (21:18)
[2019-09-06] VITALS: BP 131/76
--- NOTE | 2019-09-06 00:30 | History and Physical Report ---
DATE OF ADMISSION: 09/04/2019 HISTORY OF PRESENT ILLNESS: The patient is admitted, has history of HIV, hypertension, and COPD, comes with chest pain and shortness of breath. The chest pain that has been going on for about a week. The patient has history of heartburn as well. The patient also complains of vomiting for about a week. The patient has a history of stent and history of sleep apnea. The patient denies orthopnea. Denies leg edema. Denies cold-like symptoms. Denies wheezing. Denies any significant pain. PAST MEDICAL HISTORY: Significant for COPD, HIV, hypertension, hyperlipidemia, GERD, CAD, status post VT, history of kidney disease, and sleep apnea. PAST SURGICAL HISTORY: Cholecystectomy, eye surgery, PTCA, surgery, and stent. ALLERGIES: To pollen. FAMILY HISTORY: He does have history of diabetes and hypertension. SOCIAL HISTORY: The patient does have history of smoking. Does have history of marijuana use. Denies history of alcohol use. MEDICATIONS: Breathing treatments. Tivicay, lisinopril, metoprolol, Crestor, and VESIcare. REVIEW OF SYSTEMS: HEENT: Denies headaches. RESPIRATORY: Reports shortness of breath. CARDIOVASCULAR: Reports chest pain and orthopnea. GASTROINTESTINAL: Denies nausea, vomiting. Does have occasional heartburn. EXTREMITIES: Denies pain in lower extremities. CENTRAL NERVOUS SYSTEM: Denies change in vision or speech pattern. PHYSICAL EXAMINATION: VITAL SIGNS: Temperature 97.9, pulse is 107, blood pressure 145/100. HEENT: PERRLA. NECK: Supple. No lymphadenopathy. CHEST: Bibasilar rales. CARDIOVASCULAR: Regular rate and rhythm. GASTROINTESTINAL: Soft. Positive bowel sounds. No organomegaly. EXTREMITIES: A 1+ edema. Reflexes on both sides. Moves all four extremities. DIAGNOSTIC AND LABORATORY DATA: anything significant. Basically WBC of 5.2, hemoglobin of 16.4, and platelets of 216. Sodium 138, potassium of 3.8, BUN of 22, creatinine 1.8, and glucose of 100. ASSESSMENT AND PLAN: Chest pain, shortness of breath, vomiting, azotemia, most likely due to dehydration. I have basically consulted Dr. Prater, Dr. Chapa, Dr. Gasca, Dr. Mario Fajardo, Dr. Orlando to help with the management for renal failure, dehydration, and chest pain, rule out acute coronary syndrome and also for shortness of breath workup as well as for vomiting workup. The patient also complains of constipation, Dr. Prater has been consulted for that as well, as well as for the vomiting. Pee Arenas M.D. DR: MARIOLA JOB#: [id number] CC:
[2019-09-06] MEDS: Albuterol/Ipratropium 3ml neb HHN SCH ×5 (03:53→20:12)
[2019-09-06] MEDS: Acetylcysteine 20% Soln 4ml HHN SCH ×5 (03:53→20:12)
[2019-09-06 04:00] VITALS: BP 125/74
[2019-09-06] MEDS: Solu-MEDROL 40mg Inj IVP SCH ×3 (05:38→22:12)
[2019-09-06] MEDS: Lexiscan 0.4mg/5ml syringe IV SCH ×2 (06:00→11:21)
--- NOTE | 2019-09-06 07:38 | NUR ---
HAND-OFF: Report given to CHARLES Maya. Pt is awake and in stable condition. Plan of care endorsed.
[2019-09-06 08:00] VITALS: BP 130/75
[2019-09-06] MEDS: Vitamin D 1000 IU Tab ORAL SCH (09:00)
[2019-09-06] MEDS: PREZCOBIX ORAL SCH (09:00)
[2019-09-06] MEDS: Lisinopril 10mg tab ORAL SCH (09:00)
[2019-09-06] MEDS: cefTRIAXone 1 GM in D5W 55 ML IVPB SCH (09:00)
[2019-09-06] MEDS: Azithromycin 250mg tab ORAL SCH (09:00)
[2019-09-06] MEDS: Heparin 5000 units/ml inj SUBQ SCH ×2 (09:00→20:44)
[2019-09-06] MEDS: DOLUTEGRAVIR SODIUM 50 MG ORAL SCH (09:00)
[2019-09-06] MEDS: Aspirin EC 81mg tab ORAL SCH (09:00)
--- NOTE | 2019-09-06 09:48 | Infectious Diseases Prog Note ---
Assessment/Plan Assessment/Plan IMPRESSION: 1. COPD exacerbation. 2. Human immunodeficiency virus. 3. Nicotine dependence. 4. Chest pain. 5. Kidney disease, likely chronic. 6. History of coronary artery disease. RECOMMENDATIONS: Continue Tivicay and Prezcobix Continue Zithromax and Rocephin will f/u stress test Subjective ROS Limited/Unobtainable: No Constitutional: Reports: no symptoms, other - feels better Respiratory: Reports: other - cough decreased Cardiovascular: Reports: other - had cardiac stress test today Gastrointestinal/Abdominal: Reports: no symptoms Genitourinary: Reports: no symptoms Allergies: Uncoded Allergies: POLLEN (Allergy, Unknown, 09/04/19) Objective Vital Signs Last 24 Hour Vital Signs Date Time Temp Pulse Resp B/P (MAP) Pulse Ox O2 Delivery O2 Flow Rate FiO2 09/06/19 09:00 125/74 09/06/19 08:38 Nasal Cannula 3.0 09/06/19 08:36 3.0 09/06/19 04:00 97.7 87 18 125/74 (91) 97 09/06/19 03:55 86 18 100 Room Air 21 84 18 99 09/06/19 03:36 84 09/06/19 01:34 90 18 99 Facial 24 09/06/19 00:34 82 20 100 Room Air 21 82 20 100 09/06/19 00:00 96.8 92 18 131/76 (94) 98 09/06/19 00:00 81 09/05/19 23:49 85 20 100 Room Air 21 82 20 100 09/05/19 21:39 94 20 99 Facial 24 09/05/19 21:00 Bi-pap 10.0 09/05/19 20:00 98.5 82 18 149/93 (111) 99 09/05/19 20:00 83 09/05/19 19:53 92 19 98 Facial 24 09/05/19 19:47 94 20 99 Room Air 21 92 20 98 09/05/19 16:00 101 09/05/19 16:00 97.9 107 16 145/100 (115) 95 09/05/19 13:41 99 20 99 Room Air 21 100 20 97 09/05/19 12:00 99.5 111 16 155/112 (126) 94 09/05/19 11:40 111 Height (Feet): 5 Height (Inches): 6.00 Weight (Pounds): 154 General Appearance: no acute distress HEENT: mucous membranes moist Respiratory/Chest: lungs clear Cardiovascular: normal rate Abdomen: soft, non tender Extremities: no edema Neurologic/Psychiatric: alert, oriented x 3, responsive Microbiology Date/Time Source Procedure Growth Status 09/04/19 17:00 Nasal Nares - Final Complete 09/04/19 17:00 Nasal Nares - Final Complete Laboratory Tests Test 09/06/19 03:24 09/06/19 04:48 Troponin I 0.022 ng/mL (0.000-0.056) Urine Eosinophils None seen (NONE SEEN) Current Medications Medications (Trade) Dose Ordered Sig/Vaishnavi Route PRN Reason Start Time Stop Time Status Last Admin Dose Admin Acetaminophen (Tylenol) 500 mg Q4H PRN ORAL Mild Pain/Temp > 100.5 09/04/19 14:30 10/04/19 14:29 Acetylcysteine (Mucomyst) 600 mg Q4HRT [facility] 09/05/19 19:00 10/05/19 18:59 09/06/19 03:53 Al Hydroxide/Mg Hydroxide (Mylanta) 30 ml EVERY 4 HOURS PRN ORAL Per rx protocol 09/05/19 05:30 10/05/19 05:29 09/05/19 21:18 Albuterol/ Ipratropium (Albuterol/ Ipratropium) 3 ml Q4HRT N 09/05/19 19:00 09/09/19 14:59 09/06/19 03:53 Aspirin (Ecotrin) 81 mg DAILY ORAL 09/05/19 09:00 10/05/19 08:59 09/06/19 09:00 Atorvastatin Calcium (Lipitor) 80 mg BEDTIME ORAL 09/05/19 21:00 10/05/19 20:59 09/05/19 21:18 Azithromycin (Zithromax) 250 mg DAILY ORAL 09/05/19 09:00 09/12/19 08:59 09/06/19 09:00 Ceftriaxone Sodium 1 gm/ Dextrose 55 ml @ 110 mls/hr DAILY IVPB 09/04/19 15:00 09/11/19 14:59 09/05/19 08:39 Chlorthalidone (Chlorthalidone) 25 mg DAILY ORAL 09/05/19 09:00 10/05/19 08:59 09/06/19 09:00 Guaifenesin/ Dextromethorphan (Robitussin DM Syrup) 10 ml Q4H PRN ORAL For Cough 09/04/19 21:00 10/04/19 20:59 09/04/19 21:17 Heparin Sodium (Porcine) (Heparin 5000 units/ml) 5,000 units EVERY 12 HOURS SUBQ 09/04/19 21:00 10/04/19 20:59 Latanoprost (Xalatan) 1 drop BEDTIME BOTH EYES 09/04/19 21:00 10/04/19 20:59 09/05/19 21:18 Lisinopril (ZestriL) 10 mg DAILY ORAL 09/06/19 09:00 10/06/19 08:59 09/06/19 09:00 Methylprednisolone Sodium Succinate (Solu-MEDROL) 40 mg EVERY 8 HOURS IVP 09/04/19 15:00 10/04/19 14:59 09/06/19 05:38 Pantoprazole (Protonix) 40 mg DAILY ORAL 09/05/19 09:00 10/05/19 08:59 09/06/19 09:00 Patient Own Medication (Patient's Own Med) 1 ea DAILY ORAL 09/05/19 17:00 10/05/19 16:59 09/06/19 09:00 Patient Own Medication (Patient's Own Med) 1 ea DAILY ORAL 09/05/19 17:00 10/05/19 16:59 09/06/19 09:00 Regadenoson (Lexiscan) 0.4 mg ONCE IV 09/06/19 06:00 09/06/19 18:00 Solifenacin (Vesicare) 5 mg DAILY ORAL 09/05/19 09:00 10/05/19 08:59 09/06/19 09:00 Vitamin D (Vitamin D) 1,000 intlu DAILY ORAL 09/05/19 09:00 10/05/19 08:59 09/06/19 09:00 Mario Fajardo MD Sep 06, 2019 09:48
--- NOTE | 2019-09-06 11:51 | Nephrology Progress Note ---
Assessment/Plan Problem List: (1) Renal failure (ARF), acute on chronic (2) COPD (chronic obstructive pulmonary disease) (3) AIDS (acquired immune deficiency syndrome) Assessment Renal failure ? acute on chronic GERD COPD AIDS Plan no labs today THC in urine AZUL Kidney noted below 2 D Echo pending Urine studies UA per pulmonary monitor renal parameters per orders AZUL: IMPRESSION: * Renal echogenicity within normal limits. * Punctate subcentimeter echogenic foci in the bilateral kidneys may be related to vascular calcifications or nonobstructing stones. No evidence of hydronephrosis bilaterally. Subjective ROS Limited/Unobtainable: No Constitutional: Reports: malaise Objective Objective Last 24 Hour Vital Signs Date Time Temp Pulse Resp B/P (MAP) Pulse Ox O2 Delivery O2 Flow Rate FiO2 09/06/19 09:00 125/74 09/06/19 08:38 Nasal Cannula 3.0 09/06/19 08:36 3.0 09/06/19 04:00 97.7 87 18 125/74 (91) 97 09/06/19 03:55 86 18 100 Room Air 21 84 18 99 09/06/19 03:36 84 09/06/19 01:34 90 18 99 Facial 24 09/06/19 00:34 82 20 100 Room Air 21 82 20 100 09/06/19 00:00 96.8 92 18 131/76 (94) 98 09/06/19 00:00 81 09/05/19 23:49 85 20 100 Room Air 21 82 20 100 09/05/19 21:39 94 20 99 Facial 24 09/05/19 21:00 Bi-pap 10.0 09/05/19 20:00 98.5 82 18 149/93 (111) 99 09/05/19 20:00 83 09/05/19 19:53 92 19 98 Facial 24 09/05/19 19:47 94 20 99 Room Air 21 92 20 98 09/05/19 16:00 101 09/05/19 16:00 97.9 107 16 145/100 (115) 95 09/05/19 13:41 99 20 99 Room Air 21 100 20 97 09/05/19 12:00 99.5 111 16 155/112 (126) 94 Intake and Output 09/05/19 09/06/19 19:00 07:00 Intake Total 660 ml 480 ml Balance 660 ml 480 ml Intake Oral 550 ml 480 ml IV Total 110 ml # Voids 3 3 Laboratory Tests 09/06/19 03:24: Troponin I 0.022 09/06/19 04:48: Urine Eosinophils None seen Height (Feet): 5 Height (Inches): 6.00 Weight (Pounds): 154 General Appearance: no apparent distress Cardiovascular: normal rate Respiratory/Chest: decreased breath sounds Abdomen: distended Luis Fernando Gasca MD Sep 06, 2019 11:51
[2019-09-06 12:00] VITALS: BP 129/69
--- NOTE | 2019-09-06 12:45 | Consultation ---
DATE OF CONSULTATION: 09/04/2019 CARDIOLOGY CONSULTATION CONSULTING PHYSICIAN: Nirmal Chapa M.D. REFERRING PHYSICIAN: Pee Arenas M.D. REASON FOR CONSULTATION: Management of chest pain. HISTORY OF PRESENT ILLNESS: The patient is a very unfortunate 64-year-old gentleman, who presents to the hospital with complains of shortness of breath, chest pain for about a week. The patient has history of coronary artery disease, status post left circumflex angioplasty and stent placement at [facility]. The patient states that the chest pain is milder than the chest pain that he had to experience with his heart attack at [facility] while back. The chest pain felt as aching in the anterior chest with associated cough, clear sputum production. He also states that he has acid reflux, the burning sensation, that is his usual acid reflux symptoms. He claims that this has occurred after his doctor took him off omeprazole about a month ago. At the time of arrival to this facility, blood pressure was 120/70, heart rate was 99. A 12-lead electrocardiogram was significant for sinus rhythm with left atrial enlargement, early repolarization, but no acute ischemic changes. Laboratory data showed evidence of creatinine of 1.8 and BUN of 22. Troponin I level was 0. Chest x-ray was significant for no acute cardiopulmonary disease. The patient was admitted to telemetry for further evaluation and management. Cardiology consultation was made at request of Dr. Arenas. PAST MEDICAL HISTORY: 1. Coronary artery disease, status post PCI left circumflex at [facility]. 2. GERD. 3. COPD. 4. AIDS. Last CD4 count of 531. Viral load less than 20. ALLERGIES: To pollens. PAST SURGICAL HISTORY: Angioplasty with stent placement. SOCIAL HISTORY: Denies any tobacco, alcohol, or illicit drug use. REVIEW OF SYSTEMS: HEENT: Denies any headache, diplopia, or blurred vision. CONSTITUTIONAL: Denies any fever, chills, night sweats, or weight loss. CARDIOVASCULAR: Chest pain and shortness of breath as mentioned above. Denies any PND, orthopnea, leg swelling, or syncope. PULMONARY: The patient has productive cough with yellowish sputum and shortness of breath. GASTROINTESTINAL: Denies any nausea, vomiting, diarrhea, constipation, abdominal pain, or GI bleed. Positive for heartburn and acid reflux. GENITOURINARY: Denies any hematuria, dysuria, incontinence. NEUROLOGY: Denies any motor dysfunction, sensory deficit, or altered speech. MEDICATIONS: List of medications at home includes Ventolin one puff every six hours, aspirin 81 mg p.o. daily, azelastine hydrochloride 137 mcg NS, , chlorthalidone 25 mg p.o. daily, vitamin D3 1000 mg p.o. daily, Prezcobix 800/150 mg one tablet daily, Tivicay 50 mg p.o. daily, Combivent inhaler daily, latanoprost eye drops, lisinopril 5 mg p.o. daily, metoprolol 25 mg p.o. daily, Crestor 40 mg p.o. at bedtime, and mg p.o. daily. PHYSICAL EXAMINATION: VITAL SIGNS: Blood pressure was 120/70, heart rate was 99, respirations 21, temperature 97.7 degrees Fahrenheit, O2 saturation 99% on room air. GENERAL: The patient is a very unfortunate 64-year-old gentleman, in no apparent respiratory distress. Alert and oriented x4. HEENT: Atraumatic and normocephalic. Anicteric. Pupils are equal, round, and reactive to light and accommodation. Extraocular muscles intact. NECK: JVP less than 5 cm. No carotid bruit. Carotid upstrokes 2+ bilaterally. CARDIOVASCULAR: Normal S1, S2. Regular rate and rhythm. No murmurs, gallops, or rubs. PMI is at fourth intercostal space in the midclavicular line. LUNGS: Clear to auscultation bilaterally. ABDOMEN: Soft, nontender, and nondistended. No hepatosplenomegaly. Positive bowel sounds. EXTREMITIES: No evidence of edema, clubbing, or cyanosis. LABORATORY FINDINGS: Sodium is 138, potassium is 3.8, chloride 102, bicarbonate 29, BUN of 22, creatinine 1.8, glucose is 100, calcium is 9.4. Troponin I was 0.0. Toxicology positive for marijuana. ASSESSMENT AND PLAN: The patient is a very unfortunate 64-year-old gentleman, seen in Cardiology consultation. 1. Most likely, atypical chest pain. However given history of coronary artery disease and stent placement, the patient will require to have a myocardial perfusion imaging study. 2. A 2D echocardiography has been ordered. has been ordered. 3. History of HIV disease. 4. History of COPD. 5. History of GERD. 6. Substance abuse including marijuana. I would like to thank, Dr. Arenas, for allowing me to participate in care of this patient. Nirmal Chapa M.D. DR: MAK JOB#: [id number] CC:
--- NOTE | 2019-09-06 13:12 | NUR ---
NM Myocardial perfusion scan complete.
--- NOTE | 2019-09-06 14:20 | Diagnostic Imaging Report ---
Indications: 62-year-old male with chest pain and coronary artery disease Technique: Single day single isotope protocol utilized. Initially, resting images obtained using IV administration on millicuries 99M technetium Myoview. Subsequently, patient underwent lexiscan stress testing. See cardiology report for details. During Lexiscan infusion, IV administration 31.4 mCi 99 M technetium Myoview. SPECT and planar images obtained. SPECT images gated to 8 phases of the cardiac cycle were also obtained, and reformatted into cine images for evaluation of ejection fraction. Comparison: none Findings: Presence or absence of symptoms is not described in the cardiology report. Per cardiology report, resting EKG demonstrates sinus rhythm with repolarization abnormalities. Presence or absence of EKG changes during infusion is not described. . Imaging demonstrates normal poststress perfusion. No fixed nor reversible poststress perfusion defects are demonstrated. Calculated post stress ejection fraction 73%. No focal wall motion abnormality Impression: Nonischemic clinical response to pharmacologic stress, per cardiology report Nonischemic electrocardiographic response to pharmacologic stress, per cardiology report No imaging findings to suggest ischemia, at level of stress achieved. Calculated post stress ejection fraction greater than 70%
--- NOTE | 2019-09-06 14:54 | General Progress Note ---
Assessment/Plan Problem List: (1) Chest pain ICD Codes: R07.9 - Chest pain, unspecified SNOMED: 43356285 (2) Renal failure (ARF), acute on chronic ICD Codes: N17.9 - Acute kidney failure, unspecified; N18.9 - Chronic kidney disease, unspecified SNOMED: 473512652 (3) COPD (chronic obstructive pulmonary disease) ICD Codes: J44.9 - Chronic obstructive pulmonary disease, unspecified SNOMED: 98039482 (4) AIDS (acquired immune deficiency syndrome) ICD Codes: B20 - Human immunodeficiency virus [HIV] disease SNOMED: 46142601 Status: progressing Assessment/Plan: afebrile aids copd no wheezing chest pain resolving r/o acs reviewed chart and labs Subjective ROS Limited/Unobtainable: Yes Allergies: Uncoded Allergies: POLLEN (Allergy, Unknown, 09/04/19) Objective Last 24 Hour Vital Signs Date Time Temp Pulse Resp B/P (MAP) Pulse Ox O2 Delivery O2 Flow Rate FiO2 09/06/19 11:20 79 20 99 Room Air 21 77 20 98 09/06/19 09:00 125/74 09/06/19 08:38 Nasal Cannula 3.0 09/06/19 08:36 3.0 09/06/19 04:00 97.7 87 18 125/74 (91) 97 09/06/19 03:55 86 18 100 Room Air 21 84 18 99 09/06/19 03:36 84 09/06/19 01:34 90 18 99 Facial 24 09/06/19 00:34 82 20 100 Room Air 21 82 20 100 09/06/19 00:00 96.8 92 18 131/76 (94) 98 09/06/19 00:00 81 09/05/19 23:49 85 20 100 Room Air 21 82 20 100 09/05/19 21:39 94 20 99 Facial 24 09/05/19 21:00 Bi-pap 10.0 09/05/19 20:00 98.5 82 18 149/93 (111) 99 09/05/19 20:00 83 09/05/19 19:53 92 19 98 Facial 24 09/05/19 19:47 94 20 99 Room Air 21 92 20 98 09/05/19 16:00 101 09/05/19 16:00 97.9 107 16 145/100 (115) 95 Intake and Output 09/05/19 09/06/19 18:59 06:59 Intake Total 660 ml 480 ml Balance 660 ml 480 ml Intake Oral 550 ml 480 ml IV Total 110 ml # Voids 3 3 Laboratory Tests 09/06/19 03:24: Troponin I 0.022 09/06/19 04:48: Urine Eosinophils None seen Height (Feet): 5 Height (Inches): 6.00 Weight (Pounds): 154 Cardiovascular: normal rate Respiratory/Chest: lungs clear Abdomen: soft Pee Arenas MD Sep 06, 2019 14:54
[2019-09-06 16:00] VITALS: BP 119/63
--- NOTE | 2019-09-06 17:58 | Pulmonology Progress Note ---
Assessment/Plan Assessment/Plan Pulmonary Progress Note HPI Patient is a 64-year-old male with past medical history of COPD, and AIDS, last CD4 count of 531, viral load less than 20, GERD, admitted c/o shortness of breath and chest pain for 1 week. He reports the chest pain is like an ache, wrapped his anterior chest, with associated cough with clear sputum production, He denies fevers, hemoptysis, syncope, leg swelling, any other symptoms. Less SOB Allergies: POLLEN Past Medical History: Chronic Obstructive Pulmonary Disease, AIDS, GERD All Other Systems: negative except mentioned in HPI Physical Exam Vital Signs noted General Appearance: no apparent distress, alert, non-toxic Head: normocephalic Eyes: bilateral eye normal inspection, bilateral eye PERRL, bilateral eye EOMI ENT: normal ENT inspection, hearing grossly normal, normal pharynx, moist mucus membranes Neck: normal inspection, full range of motion, supple, supple/symm/no masses, no LN Respiratory: chest non-tender, lungs clear, normal breath sounds, chest symmetrical Cardiovascular: normal peripheral pulses, regular rate, rhythm, HS1, HS2 normal Gastrointestinal: normal inspection, non tender, soft, no mass, no guarding, no rebound Musculoskeletal: back normal, normal range of motion, no calf tenderness, gait/ station normal, Keron's Sign negative, non-tender Neurologic: alert, motor strength/tone normal, rn ante partum III-XII nml as tested, sensory intact, responsive, speech normal Impression: Chronic Obstructive Pulmonary Disease Exacerbation Chest pain HIV with las CD4 count 531, on ARV GERD Plan IV Solumedrol wean as tolerated HHN O2 PRN CLIENT SU[employer] PROFESSIONAL Medications PPX Monitor labs EKG: no stemi Rate: normal Rhythm: NSR ST Segments: no acute changes Nuclear Perfusion: Nonischemic clinical response Chest X-Ray: no consolidation, no effusion, no pneumothorax, no acute cardiopulmonary disease Subjective ROS Limited/Unobtainable: No Allergies: Uncoded Allergies: POLLEN (Allergy, Unknown, 09/04/19) Objective Last 24 Hour Vital Signs Date Time Temp Pulse Resp B/P (MAP) Pulse Ox O2 Delivery O2 Flow Rate FiO2 09/06/19 16:00 87 09/06/19 16:00 1.0 09/06/19 15:20 76 20 99 Room Air 21 75 20 99 09/06/19 12:00 96.6 85 20 129/69 (89) 97 09/06/19 12:00 95 09/06/19 12:00 3.0 09/06/19 11:20 79 20 99 Room Air 21 77 20 98 09/06/19 09:00 125/74 09/06/19 08:38 Nasal Cannula 3.0 09/06/19 08:36 3.0 09/06/19 08:00 95 09/06/19 08:00 97.6 77 18 130/75 (93) 98 09/06/19 04:00 97.7 87 18 125/74 (91) 97 09/06/19 03:55 86 18 100 Room Air 21 84 18 99 09/06/19 03:36 84 09/06/19 01:34 90 18 99 Facial 24 09/06/19 00:34 82 20 100 Room Air 21 82 20 100 09/06/19 00:00 96.8 92 18 131/76 (94) 98 09/06/19 00:00 81 09/05/19 23:49 85 20 100 Room Air 21 82 20 100 09/05/19 21:39 94 20 99 Facial 24 09/05/19 21:00 Bi-pap 10.0 09/05/19 20:00 98.5 82 18 149/93 (111) 99 09/05/19 20:00 83 09/05/19 19:53 92 19 98 Facial 24 09/05/19 19:47 94 20 99 Room Air 21 92 20 98 Intake and Output 09/05/19 09/06/19 19:00 07:00 Intake Total 660 ml 480 ml Balance 660 ml 480 ml Intake Oral 550 ml 480 ml IV Total 110 ml # Voids 3 3 Microbiology Date/Time Source Procedure Growth Status 09/04/19 17:00 Nasal Nares - Final Complete 09/04/19 17:00 Nasal Nares - Final Complete Laboratory Tests 09/06/19 03:24: Troponin I 0.022 09/06/19 04:48: Urine Eosinophils None seen Current Medications Medications (Trade) Dose Ordered Sig/Vaishnavi Route PRN Reason Start Time Stop Time Status Last Admin Dose Admin Acetaminophen (Tylenol) 500 mg Q4H PRN ORAL Mild Pain/Temp > 100.5 09/04/19 14:30 10/04/19 14:29 Acetylcysteine (Mucomyst) 600 mg Q4HRT HHN 09/05/19 19:00 10/05/19 18:59 09/06/19 15:00 Al Hydroxide/Mg Hydroxide (Mylanta) 30 ml EVERY 4 HOURS PRN ORAL Per rx protocol 09/05/19 05:30 10/05/19 05:29 09/06/19 13:17 Albuterol/ Ipratropium (Albuterol/ Ipratropium) 3 ml Q4HRT HHN 09/05/19 19:00 09/09/19 14:59 09/06/19 15:30 Aspirin (Ecotrin) 81 mg DAILY ORAL 09/05/19 09:00 10/05/19 08:59 09/06/19 09:00 Atorvastatin Calcium (Lipitor) 80 mg BEDTIME ORAL 09/05/19 21:00 10/05/19 20:59 09/05/19 21:18 Azithromycin (Zithromax) 250 mg DAILY ORAL 09/05/19 09:00 09/12/19 08:59 09/06/19 09:00 Ceftriaxone Sodium 1 gm/ Dextrose 55 ml @ 110 mls/hr DAILY IVPB 09/04/19 15:00 09/11/19 14:59 09/06/19 09:00 Chlorthalidone (Chlorthalidone) 25 mg DAILY ORAL 09/05/19 09:00 10/05/19 08:59 09/06/19 09:00 Guaifenesin/ Dextromethorphan (Robitussin DM Syrup) 10 ml Q4H PRN ORAL For Cough 09/04/19 21:00 10/04/19 20:59 09/04/19 21:17 Heparin Sodium (Porcine) (Heparin 5000 units/ml) 5,000 units EVERY 12 HOURS SUBQ 09/04/19 21:00 10/04/19 20:59 Latanoprost (Xalatan) 1 drop BEDTIME BOTH EYES 09/04/19 21:00 10/04/19 20:59 09/05/19 21:18 Lisinopril (ZestriL) 10 mg DAILY ORAL 09/06/19 09:00 10/06/19 08:59 09/06/19 09:00 Methylprednisolone Sodium Succinate (Solu-MEDROL) 40 mg EVERY 8 HOURS IVP 09/04/19 15:00 10/04/19 14:59 09/06/19 14:13 Pantoprazole (Protonix) 40 mg DAILY ORAL 09/05/19 09:00 10/05/19 08:59 09/06/19 09:00 Patient Own Medication (Patient's Own Med) 1 ea DAILY ORAL 09/05/19 17:00 10/05/19 16:59 09/06/19 09:00 Patient Own Medication (Patient's Own Med) 1 ea DAILY ORAL 09/05/19 17:00 10/05/19 16:59 09/06/19 09:00 Regadenoson (Lexiscan) 0.4 mg ONCE IV 09/06/19 06:00 09/06/19 18:00 09/06/19 11:21 Solifenacin (Vesicare) 5 mg DAILY ORAL 09/05/19 09:00 10/05/19 08:59 09/06/19 09:00 Vitamin D (Vitamin D) 1,000 intlu DAILY ORAL 09/05/19 09:00 10/05/19 08:59 09/06/19 09:00 Vishnu Orlando MD Sep 06, 2019 17:58
--- NOTE | 2019-09-06 19:35 | NUR ---
Received report from nurse Francesco SOTO. Awake and alert with periods of dry cough. Denies c/o pain at this time. Will continue to monitor pt.
[2019-09-06 20:00] VITALS: BP 115/72
[2019-09-06] MEDS: Latanoprost 0.005% Opth 2.5ml Soln BOTH EYES SCH (20:42)
[2019-09-06] MEDS: Atorvastatin 80mg tab ORAL SCH (20:44)
[2019-09-06] MEDS: Guaifenesin/DM 10ml syrup ORAL PRN (22:19)
--- NOTE | 2019-09-06 22:29 | General Progress Note ---
Assessment/Plan Status: progressing Assessment/Plan: Assessment - GERD - STACEY - HIV - CAD - HTN - High choleseterol Recommendations - completion of cardiac w/u - Acid suppression - outpatient EGD/Colon Subjective Allergies: Uncoded Allergies: POLLEN (Allergy, Unknown, 09/04/19) Subjective feels better tolerating PO chest pain improved Objective Last 24 Hour Vital Signs Date Time Temp Pulse Resp B/P (MAP) Pulse Ox O2 Delivery O2 Flow Rate FiO2 09/06/19 20:53 92 20 98 Facial 24 09/06/19 20:16 73 15 99 Room Air 21 82 14 98 09/06/19 16:00 87 09/06/19 16:00 96.7 81 20 119/63 (81) 96 09/06/19 16:00 1.0 09/06/19 15:20 76 20 99 Room Air 21 75 20 99 09/06/19 12:00 96.6 85 20 129/69 (89) 97 09/06/19 12:00 95 09/06/19 12:00 3.0 09/06/19 11:20 79 20 99 Room Air 21 77 20 98 09/06/19 09:00 125/74 09/06/19 08:38 Nasal Cannula 3.0 09/06/19 08:36 3.0 09/06/19 08:00 95 09/06/19 08:00 97.6 77 18 130/75 (93) 98 09/06/19 04:00 97.7 87 18 125/74 (91) 97 09/06/19 03:55 86 18 100 Room Air 21 84 18 99 09/06/19 03:36 84 09/06/19 01:34 90 18 99 Facial 24 09/06/19 00:34 82 20 100 Room Air 21 82 20 100 09/06/19 00:00 96.8 92 18 131/76 (94) 98 09/06/19 00:00 81 09/05/19 23:49 85 20 100 Room Air 21 82 20 100 Intake and Output 09/05/19 09/06/19 19:00 07:00 Intake Total 660 ml 480 ml Balance 660 ml 480 ml Intake Oral 550 ml 480 ml IV Total 110 ml # Voids 3 3 Laboratory Tests 09/06/19 03:24: Troponin I 0.022 09/06/19 04:48: Urine Eosinophils None seen Height (Feet): 5 Height (Inches): 6.00 Weight (Pounds): 154 Objective WDWN NCAT supple CTA RR Abd soft no edema Dontae Prater MD Sep 06, 2019 22:29
[2019-09-07 00:31] VITALS: BP 127/80
[2019-09-07 04:00] VITALS: BP 128/86
--- NOTE | 2019-09-07 04:04 | NUR ---
HAND-OFF: Report given to nurse David RN.Patient stable NAD.
--- NOTE | 2019-09-07 04:10 | NUR ---
NURSE NOTES: Received report from Genesis Higgins RN. Patient in bed AAO X4 with no complaints of acute pain or discomfort at this time. Kept clean, dry, and comfortable in bed. Ambulates to the bathroom with minimal assistance. Placed on continuous cardiac monitoring per protocol. IV line intact and patent SL. Safety precaution in place; siderails X2 up, call light within reach, bed in lowest position, brakes and alarm on at all times. Needs and wants anticipated and attended. Will continue plan of care and monitor for any changes noted.
[2019-09-07] MEDS: Solu-MEDROL 40mg Inj IVP SCH ×2 (06:41→13:34)
--- NOTE | 2019-09-07 07:30 | NUR ---
NURSE NOTES: Received pt awake and alert is eating breakfast. pt has intact iv access RLFA 18G SL. No complain of pain at this moment, placed on cardiac monitoring as protocol. all needs attended, bed is locked and is in the lowest position, call light within easy reach. will continue to monitor.
--- NOTE | 2019-09-07 07:35 | NUR ---
HAND-OFF: Report given to Maegan Burrell RN. Patient in bed with no complaints of distress, endorsed plan of care.
[2019-09-07] MEDS: Albuterol/Ipratropium 3ml neb HHN SCH ×4 (07:45→19:00)
[2019-09-07] MEDS: Acetylcysteine 20% Soln 4ml HHN SCH ×4 (07:45→19:00)
[2019-09-07 07:57] LABS: HEMATOCRIT 43.6 % (42.0-52.0); HEMOGLOBIN 14.6 G/DL (14.2-18.0); MEAN CORPUSCULAR VOLUME 87 FL (80-99); PLATELET COUNT 181 K/UL (150-450); RED BLOOD COUNT 5.02 M/UL (4.70-6.10); RED CELL DISTRIBUTION WIDTH 10.5 % (11.6-14.8); WHITE BLOOD COUNT 12.4 K/UL (4.8-10.8)
[2019-09-07 08:00] VITALS: BP 132/94
[2019-09-07 08:18] LABS: ALANINE AMINOTRANSFERASE 21 U/L (12-78); ALBUMIN 3.5 G/DL (3.4-5.0); ALBUMIN/GLOBULIN RATIO 1.1 (1.0-2.7); ALKALINE PHOSPHATASE 61 U/L (46-116); ANION GAP 4 mmol/L (5-15); ASPARTATE AMINO TRANSFERASE 18 U/L (15-37); BILIRUBIN,TOTAL 0.3 MG/DL (0.2-1.0); BLOOD UREA NITROGEN 33 mg/dL (7-18); CALCIUM 9.3 MG/DL (8.5-10.1); CARBON DIOXIDE 32 MMOL/L (21-32); CHLORIDE 100 MMOL/L (98-107); CREATININE 1.7 MG/DL (0.55-1.30); PHOSPHORUS 2.8 MG/DL (2.5-4.9); POTASSIUM 4.4 MMOL/L (3.5-5.1); SODIUM 136 MMOL/L (136-145)
[2019-09-07] MEDS: Vitamin D 1000 IU Tab ORAL SCH (08:43)
[2019-09-07] MEDS: Azithromycin 250mg tab ORAL SCH (08:43)
[2019-09-07] MEDS: Aspirin EC 81mg tab ORAL SCH (08:43)
[2019-09-07] MEDS: Lisinopril 10mg tab ORAL SCH (08:43)
[2019-09-07] MEDS: Heparin 5000 units/ml inj SUBQ SCH (08:44)
[2019-09-07] MEDS: cefTRIAXone 1 GM in D5W 55 ML IVPB SCH (08:44)
[2019-09-07] MEDS: PREZCOBIX ORAL SCH (08:45)
[2019-09-07] MEDS: DOLUTEGRAVIR SODIUM 50 MG ORAL SCH (08:46)
--- NOTE | 2019-09-07 08:48 | General Progress Note ---
Assessment/Plan Status: progressing Assessment/Plan: Assessment - GERD - STACEY - HIV - CAD - HTN - High choleseterol Recommendations - completion of cardiac w/u - Acid suppression - outpatient EGD/Colon Subjective Allergies: Uncoded Allergies: POLLEN (Allergy, Unknown, 09/04/19) Subjective feels better tolerating PO chest pain improved some loose stools on mylanta Objective Last 24 Hour Vital Signs Date Time Temp Pulse Resp B/P (MAP) Pulse Ox O2 Delivery O2 Flow Rate FiO2 09/07/19 08:43 132/94 09/07/19 08:03 94 20 100 Room Air 21 91 20 99 09/07/19 08:00 98.8 86 20 132/94 (107) 97 09/07/19 04:00 102 09/07/19 04:00 97.8 75 18 128/86 (100) 99 09/07/19 00:31 98.1 77 16 127/80 (96) 100 09/07/19 00:00 76 09/06/19 22:52 92 20 98 Facial 24 09/06/19 21:00 Nasal Cannula 3.0 09/06/19 20:53 92 20 98 Facial 24 09/06/19 20:16 73 15 99 Room Air 21 82 14 98 09/06/19 20:00 98.2 80 16 115/72 (86) 99 09/06/19 20:00 80 09/06/19 16:00 87 09/06/19 16:00 96.7 81 20 119/63 (81) 96 09/06/19 16:00 1.0 09/06/19 15:20 76 20 99 Room Air 21 75 20 99 09/06/19 12:00 96.6 85 20 129/69 (89) 97 09/06/19 12:00 95 09/06/19 12:00 3.0 09/06/19 11:20 79 20 99 Room Air 21 77 20 98 09/06/19 09:00 125/74 Intake and Output 09/06/19 09/07/19 19:00 07:00 Intake Total 280 ml 120 ml Output Total 750 ml 500 ml Balance -470 ml -380 ml Intake Oral 280 ml 120 ml Output Urine Total 750 ml 500 ml # Voids 3 2 Laboratory Tests 09/07/19 06:37: White Blood Count 12.4H, Red Blood Count 5.02, Hemoglobin 14.6, Hematocrit 43.6 , Mean Corpuscular Volume 87, Mean Corpuscular Hemoglobin 29.1, Mean Corpuscular Hemoglobin Concent 33.5, Red Cell Distribution Width 10.5L, Platelet Count 181, Mean Platelet Volume 8.1, Neutrophils (%) (Auto) , Lymphocytes (%) (Auto) , Monocytes (%) (Auto) , Eosinophils (%) (Auto) , Basophils (%) (Auto) , Neutrophils % (Manual) [Pending], Lymphocytes % (Manual) [Pending], Platelet Estimate [Pending], Platelet Morphology [Pending], Sodium Level 136, Potassium Level 4.4, Chloride Level 100, Carbon Dioxide Level 32, Anion Gap 4L, Blood Urea Nitrogen 33H, Creatinine 1.7H, Estimat Glomerular Filtration Rate 49.7, Glucose Level 112H, Uric Acid 5.3, Calcium Level 9.3, Phosphorus Level 2.8, Magnesium Level 2.6H, Total Bilirubin 0.3, Aspartate Amino Transf (AST/SGOT) 18, Alanine Aminotransferase (ALT/SGPT) 21, Alkaline Phosphatase 61, Total Protein 6.6, Albumin 3.5, Globulin 3.1, Albumin/Globulin Ratio 1.1 Height (Feet): 5 Height (Inches): 6.00 Weight (Pounds): 154 Objective WDWN NCAT supple CTA RR Abd soft no edema Dontae Prater MD Sep 07, 2019 08:48
--- NOTE | 2019-09-07 09:38 | NUR ---
DISCHARGE PLANNING: PATIENT HAS BEEN REFERRED TO [facility] T: [phone] CLINICALS HAVE BEEN FAXED WAITING FOR RESPONSE
--- NOTE | 2019-09-07 10:22 | Infectious Diseases Prog Note ---
Assessment/Plan Assessment/Plan IMPRESSION: 1. COPD exacerbation. 2. Human immunodeficiency virus. 3. Nicotine dependence. 4. Chest pain. 5. Kidney disease, likely chronic. 6. History of coronary artery disease. 7. Leukocytosis likely steroid related RECOMMENDATIONS: Continue Tivicay and Prezcobix Continue Zithromax and Rocephin Agree with discharge to SNF Subjective ROS Limited/Unobtainable: No Constitutional: Reports: no symptoms Respiratory: Reports: no symptoms, other - use BIPAP at night Cardiovascular: Reports: no symptoms Gastrointestinal/Abdominal: Reports: other - acid reflux Genitourinary: Reports: no symptoms Allergies: Uncoded Allergies: POLLEN (Allergy, Unknown, 09/04/19) Objective Vital Signs Last 24 Hour Vital Signs Date Time Temp Pulse Resp B/P (MAP) Pulse Ox O2 Delivery O2 Flow Rate FiO2 09/07/19 09:00 Nasal Cannula 1.0 09/07/19 08:43 132/94 09/07/19 08:16 99 09/07/19 08:03 94 20 100 Room Air 21 91 20 99 09/07/19 08:00 1.0 09/07/19 08:00 98.8 86 20 132/94 (107) 97 09/07/19 04:00 102 09/07/19 04:00 97.8 75 18 128/86 (100) 99 09/07/19 00:31 98.1 77 16 127/80 (96) 100 09/07/19 00:00 76 09/06/19 22:52 92 20 98 Facial 24 09/06/19 21:00 Nasal Cannula 3.0 09/06/19 20:53 92 20 98 Facial 24 09/06/19 20:16 73 15 99 Room Air 21 82 14 98 09/06/19 20:00 98.2 80 16 115/72 (86) 99 09/06/19 20:00 80 09/06/19 16:00 87 09/06/19 16:00 96.7 81 20 119/63 (81) 96 09/06/19 16:00 1.0 09/06/19 15:20 76 20 99 Room Air 21 75 20 99 09/06/19 12:00 96.6 85 20 129/69 (89) 97 09/06/19 12:00 95 09/06/19 12:00 3.0 09/06/19 11:20 79 20 99 Room Air 21 77 20 98 Height (Feet): 5 Height (Inches): 6.00 Weight (Pounds): 154 General Appearance: no acute distress HEENT: mucous membranes moist Respiratory/Chest: lungs clear Cardiovascular: normal rate Abdomen: soft, non tender Extremities: no edema Neurologic/Psychiatric: alert, oriented x 3, responsive Microbiology Date/Time Source Procedure Growth Status 09/04/19 17:00 Nasal Nares - Final Complete 09/04/19 17:00 Nasal Nares - Final Complete Laboratory Tests Test 09/07/19 06:37 White Blood Count 12.4 K/UL (4.8-10.8) H Red Blood Count 5.02 M/UL (4.70-6.10) Hemoglobin 14.6 G/DL (14.2-18.0) Hematocrit 43.6 % (42.0-52.0) Mean Corpuscular Volume 87 FL (80-99) Mean Corpuscular Hemoglobin 29.1 PG (27.0-31.0) Mean Corpuscular Hemoglobin Concent 33.5 G/DL (32.0-36.0) Red Cell Distribution Width 10.5 % (11.6-14.8) L Platelet Count 181 K/UL (150-450) Mean Platelet Volume 8.1 FL (6.5-10.1) Neutrophils (%) (Auto) % (45.0-75.0) Lymphocytes (%) (Auto) % (20.0-45.0) Monocytes (%) (Auto) % (1.0-10.0) Eosinophils (%) (Auto) % (0.0-3.0) Basophils (%) (Auto) % (0.0-2.0) Neutrophils % (Manual) Pending Lymphocytes % (Manual) Pending Platelet Estimate Pending Platelet Morphology Pending Sodium Level 136 MMOL/L (136-145) Potassium Level 4.4 MMOL/L (3.5-5.1) Chloride Level 100 MMOL/L (98-107) Carbon Dioxide Level 32 MMOL/L (21-32) Anion Gap 4 mmol/L (5-15) L Blood Urea Nitrogen 33 mg/dL (7-18) H Creatinine 1.7 MG/DL (0.55-1.30) H Estimat Glomerular Filtration Rate 49.7 mL/min (>60) Glucose Level 112 MG/DL (74-106) H Uric Acid 5.3 MG/DL (2.6-7.2) Calcium Level 9.3 MG/DL (8.5-10.1) Phosphorus Level 2.8 MG/DL (2.5-4.9) Magnesium Level 2.6 MG/DL (1.8-2.4) H Total Bilirubin 0.3 MG/DL (0.2-1.0) Aspartate Amino Transf (AST/SGOT) 18 U/L (15-37) Alanine Aminotransferase (ALT/SGPT) 21 U/L (12-78) Alkaline Phosphatase 61 U/L (46-116) Total Protein 6.6 G/DL (6.4-8.2) Albumin 3.5 G/DL (3.4-5.0) Globulin 3.1 g/dL Albumin/Globulin Ratio 1.1 (1.0-2.7) Current Medications Medications (Trade) Dose Ordered Sig/Vaishnavi Route PRN Reason Start Time Stop Time Status Last Admin Dose Admin Acetaminophen (Tylenol) 500 mg Q4H PRN ORAL Mild Pain/Temp > 100.5 09/04/19 14:30 10/04/19 14:29 Acetylcysteine (Mucomyst) 600 mg Q4HRT [facility] 09/05/19 19:00 10/05/19 18:59 09/07/19 07:45 Al Hydroxide/Mg Hydroxide (Mylanta) 30 ml EVERY 4 HOURS PRN ORAL Per rx protocol 09/05/19 05:30 10/05/19 05:29 09/06/19 20:47 Albuterol/ Ipratropium (Albuterol/ Ipratropium) 3 ml Q4HRT [facility] 09/05/19 19:00 09/09/19 14:59 09/07/19 07:45 Aspirin (Ecotrin) 81 mg DAILY ORAL 09/05/19 09:00 10/05/19 08:59 09/07/19 08:43 Atorvastatin Calcium (Lipitor) 80 mg BEDTIME ORAL 09/05/19 21:00 10/05/19 20:59 09/06/19 20:44 Azithromycin (Zithromax) 250 mg DAILY ORAL 09/05/19 09:00 09/12/19 08:59 09/07/19 08:43 Ceftriaxone Sodium 1 gm/ Dextrose 55 ml @ 110 mls/hr DAILY IVPB 09/04/19 15:00 09/11/19 14:59 09/07/19 08:44 Chlorthalidone (Chlorthalidone) 25 mg DAILY ORAL 09/05/19 09:00 10/05/19 08:59 09/07/19 08:43 Guaifenesin/ Dextromethorphan (Robitussin DM Syrup) 10 ml Q4H PRN ORAL For Cough 09/04/19 21:00 10/04/19 20:59 09/06/19 22:19 Heparin Sodium (Porcine) (Heparin 5000 units/ml) 5,000 units EVERY 12 HOURS SUBQ 09/04/19 21:00 10/04/19 20:59 09/07/19 08:44 Latanoprost (Xalatan) 1 drop BEDTIME BOTH EYES 09/04/19 21:00 10/04/19 20:59 09/06/19 20:42 Lisinopril (ZestriL) 10 mg DAILY ORAL 09/06/19 09:00 10/06/19 08:59 09/07/19 08:43 Methylprednisolone Sodium Succinate (Solu-MEDROL) 40 mg EVERY 8 HOURS IVP 09/04/19 15:00 10/04/19 14:59 09/07/19 06:41 Pantoprazole (Protonix) 40 mg DAILY ORAL 09/05/19 09:00 10/05/19 08:59 09/07/19 08:43 Patient Own Medication (Patient's Own Med) 1 ea DAILY ORAL 09/05/19 17:00 10/05/19 16:59 09/07/19 08:45 Patient Own Medication (Patient's Own Med) 1 ea DAILY ORAL 09/05/19 17:00 10/05/19 16:59 09/07/19 08:46 Solifenacin (Vesicare) 5 mg DAILY ORAL 09/05/19 09:00 10/05/19 08:59 09/07/19 08:43 Vitamin D (Vitamin D) 1,000 intlu DAILY ORAL 09/05/19 09:00 10/05/19 08:59 09/07/19 08:43 Mario Fajardo MD Sep 07, 2019 10:22
[2019-09-07] MEDS ORDERED: AZITHROMYC200 MG/5 M ORAL ×2 (11:52→12:00)
[2019-09-07] MEDS ORDERED: CEFTRIAXONE1 G2 IV ×2 (11:54→12:01)
[2019-09-07] MEDS ORDERED: PREDNISOLO15 MG/5 M1 ORAL ×2 (11:55→12:01)
[2019-09-07 12:00] VITALS: BP 149/96
[2019-09-07] MEDS ORDERED: ZITHROMAX250 MG ORAL (12:03)
--- NOTE | 2019-09-07 12:05 | NUR ---
NURSE NOTES: Dr CHENEY and Dr CLARKE BOSCH are aware about WBC 12.4 and other lab results no new order to RN. Will continue to monitor.
--- NOTE | 2019-09-07 13:17 | NUR ---
DISCHARGE PLANNING: PATIENT HAS BEEN ACCEPTED TO [facility] T: [phone] FOR NURSE TO NURSE REPORT ROOM# 111 A SKILLED [facility] PUT ON "WILL CALL"
[2019-09-07 16:00] VITALS: BP 113/71
--- NOTE | 2019-09-07 16:35 | Nephrology Progress Note ---
Assessment/Plan Problem List: (1) Renal failure (ARF), acute on chronic (2) COPD (chronic obstructive pulmonary disease) (3) AIDS (acquired immune deficiency syndrome) Assessment Renal failure ? acute on chronic GERD COPD AIDS Plan THC in urine AZUL Kidney noted below 2 D Echo pending Urine studies UA per pulmonary monitor renal parameters per orders AZUL: IMPRESSION: * Renal echogenicity within normal limits. * Punctate subcentimeter echogenic foci in the bilateral kidneys may be related to vascular calcifications or nonobstructing stones. No evidence of hydronephrosis bilaterally. Subjective ROS Limited/Unobtainable: No Constitutional: Reports: malaise, weakness Objective Objective Last 24 Hour Vital Signs Date Time Temp Pulse Resp B/P (MAP) Pulse Ox O2 Delivery O2 Flow Rate FiO2 09/07/19 16:00 97.9 92 19 113/71 (85) 98 09/07/19 15:14 90 20 100 Room Air 21 87 20 99 09/07/19 12:00 98.8 89 19 149/96 (113) 97 09/07/19 12:00 1.0 09/07/19 11:48 90 09/07/19 11:40 91 20 100 Room Air 21 90 20 99 09/07/19 09:00 Nasal Cannula 1.0 09/07/19 08:43 132/94 09/07/19 08:16 99 09/07/19 08:03 94 20 100 Room Air 21 91 20 99 09/07/19 08:00 1.0 09/07/19 08:00 98.8 86 20 132/94 (107) 97 09/07/19 04:00 102 09/07/19 04:00 97.8 75 18 128/86 (100) 99 09/07/19 00:31 98.1 77 16 127/80 (96) 100 09/07/19 00:00 76 09/06/19 22:52 92 20 98 Facial 24 09/06/19 21:00 Nasal Cannula 3.0 09/06/19 20:53 92 20 98 Facial 24 09/06/19 20:16 73 15 99 Room Air 21 82 14 98 09/06/19 20:00 98.2 80 16 115/72 (86) 99 09/06/19 20:00 80 Intake and Output 09/06/19 09/07/19 19:00 07:00 Intake Total 280 ml 120 ml Output Total 750 ml 500 ml Balance -470 ml -380 ml Intake Oral 280 ml 120 ml Output Urine Total 750 ml 500 ml # Voids 3 2 Laboratory Tests 09/07/19 06:37: White Blood Count 12.4H, Red Blood Count 5.02, Hemoglobin 14.6, Hematocrit 43.6 , Mean Corpuscular Volume 87, Mean Corpuscular Hemoglobin 29.1, Mean Corpuscular Hemoglobin Concent 33.5, Red Cell Distribution Width 10.5L, Platelet Count 181, Mean Platelet Volume 8.1, Neutrophils (%) (Auto) , Lymphocytes (%) (Auto) , Monocytes (%) (Auto) , Eosinophils (%) (Auto) , Basophils (%) (Auto) , Differential Total Cells Counted 100, Neutrophils % ( Manual) 88H, Lymphocytes % (Manual) 7L, Monocytes % (Manual) 5, Eosinophils % ( Manual) 0, Basophils % (Manual) 0, Band Neutrophils 0, Platelet Estimate Adequate, Platelet Morphology Normal, Red Blood Cell Morphology Normal, Sodium Level 136, Potassium Level 4.4, Chloride Level 100, Carbon Dioxide Level 32, Anion Gap 4L, Blood Urea Nitrogen 33H, Creatinine 1.7H, Estimat Glomerular Filtration Rate 49.7, Glucose Level 112H, Uric Acid 5.3, Calcium Level 9.3, Phosphorus Level 2.8, Magnesium Level 2.6H, Total Bilirubin 0.3, Aspartate Amino Transf (AST/SGOT) 18, Alanine Aminotransferase (ALT/SGPT) 21, Alkaline Phosphatase 61, Total Protein 6.6, Albumin 3.5, Globulin 3.1, Albumin/Globulin Ratio 1.1 Height (Feet): 5 Height (Inches): 6.00 Weight (Pounds): 154 General Appearance: no apparent distress Cardiovascular: tachycardia Respiratory/Chest: decreased breath sounds Abdomen: soft Luis Fernando Gasca MD Sep 07, 2019 16:35
--- NOTE | 2019-09-07 17:21 | NUR ---
CASE MANAGEMENT: INITIAL REVIEW 64YR OLD MALE FROM HOME CC: CHEST PAIN SI: COPD . AIDS . CHEST PAIN 97.7 99 21 120/70 99% ON RA UA NA+ 195 IS: ZITHROMAX PO X1 PEPCID PO X1 ALBUTEROL HHN Q6 ASA PO X1 CXRAY \: 2 E TELE UNIT DCP: HOME WHEN STABLE CASE MANAGEMENT: REVIEW 09/07/19 SI: COPD . AIDS . CHEST PAIN 98.8 89 19 149/96 97% ON 1L NC BUN 33 CREAT 1.7 MG 2.6 IS: IV ROCEPHIN QD ZITHROMAX PO QD CHLORTHALIDONE PO QD HEPARIN SQ BID MUCOMYST HHN Q4 ALBUTEROL HHN Q4 ROBITUSSIN PO Q4/PRN SOLU-MEDROL IV Q8HR ASA PO QD \: 2 E TELE UNIT DCP: HOME WHEN STABLE
--- NOTE | 2019-09-07 17:38 | NUR ---
NURSE NOTES: Pt has D/C order, all discharge assessments and instructions done and pt verbally confirmed to understand all. pt is stable, V/S stable. pt will go with iv access as order. all meds received from pharmacy and given to pt per pt's request. all belongings are with pt and checked by RN and pt signed belongings list. report given to [facility]. waiting for ambulance to pick pt up. will continue to monitor.
--- NOTE | 2019-09-07 19:18 | NUR ---
HAND-OFF: Report given to LASHONDA BAER. Pt is awake and stable.
--- NOTE | 2019-09-07 20:45 | Pulmonology Progress Note ---
Assessment/Plan Assessment/Plan Pulmonary Progress Note HPI Patient is a 64-year-old male with past medical history of COPD, and AIDS, last CD4 count of 531, viral load less than 20, GERD, admitted c/o shortness of breath and chest pain for 1 week. He reports the chest pain is like an ache, wrapped his anterior chest, with associated cough with clear sputum production, He denies fevers, hemoptysis, syncope, leg swelling, any other symptoms. Less SOB Allergies: POLLEN Past Medical History: Chronic Obstructive Pulmonary Disease, AIDS, GERD All Other Systems: negative except mentioned in HPI Physical Exam Vital Signs noted General Appearance: no apparent distress, alert, non-toxic Head: normocephalic Eyes: bilateral eye normal inspection, bilateral eye PERRL, bilateral eye EOMI ENT: normal ENT inspection, hearing grossly normal, normal pharynx, moist mucus membranes Neck: normal inspection, full range of motion, supple, supple/symm/no masses, no LN Respiratory: chest non-tender, lungs clear, normal breath sounds, chest symmetrical Cardiovascular: normal peripheral pulses, regular rate, rhythm, HS1, HS2 normal Gastrointestinal: normal inspection, non tender, soft, no mass, no guarding, no rebound Musculoskeletal: back normal, normal range of motion, no calf tenderness, gait/ station normal, Keron's Sign negative, non-tender Neurologic: alert, motor strength/tone normal, 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 nml as tested, sensory intact, responsive, speech normal Impression: Chronic Obstructive Pulmonary Disease Exacerbation Chest pain HIV with las CD4 count 531, on ARV GERD Plan IV Solumedrol wean as tolerated HHN 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 PPX Monitor labs EKG: no stemi Rate: normal Rhythm: NSR ST Segments: no acute changes Nuclear Perfusion: Nonischemic clinical response Chest X-Ray: no consolidation, no effusion, no pneumothorax, no acute cardiopulmonary disease seen earlier Subjective ROS Limited/Unobtainable: No Allergies: Uncoded Allergies: POLLEN (Allergy, Unknown, 09/04/19) Objective Last 24 Hour Vital Signs Date Time Temp Pulse Resp B/P (MAP) Pulse Ox O2 Delivery O2 Flow Rate FiO2 09/07/19 16:05 89 09/07/19 16:00 1.0 09/07/19 16:00 97.9 92 19 113/71 (85) 98 09/07/19 15:14 90 20 100 Room Air 21 87 20 99 09/07/19 12:00 98.8 89 19 149/96 (113) 97 09/07/19 12:00 1.0 09/07/19 11:48 90 09/07/19 11:40 91 20 100 Room Air 21 90 20 99 09/07/19 09:00 Nasal Cannula 1.0 09/07/19 08:43 132/94 09/07/19 08:16 99 09/07/19 08:03 94 20 100 Room Air 21 91 20 99 09/07/19 08:00 1.0 09/07/19 08:00 98.8 86 20 132/94 (107) 97 09/07/19 04:00 102 09/07/19 04:00 97.8 75 18 128/86 (100) 99 09/07/19 00:31 98.1 77 16 127/80 (96) 100 09/07/19 00:00 76 09/06/19 22:52 92 20 98 Facial 24 09/06/19 21:00 Nasal Cannula 3.0 09/06/19 20:53 92 20 98 Facial 24 Intake and Output 09/06/19 09/07/19 19:00 07:00 Intake Total 280 ml 120 ml Output Total 750 ml 500 ml Balance -470 ml -380 ml Intake Oral 280 ml 120 ml Output Urine Total 750 ml 500 ml # Voids 3 2 Laboratory Tests 09/07/19 06:37: White Blood Count 12.4H, Red Blood Count 5.02, Hemoglobin 14.6, Hematocrit 43.6 , Mean Corpuscular Volume 87, Mean Corpuscular Hemoglobin 29.1, Mean Corpuscular Hemoglobin Concent 33.5, Red Cell Distribution Width 10.5L, Platelet Count 181, Mean Platelet Volume 8.1, Neutrophils (%) (Auto) , Lymphocytes (%) (Auto) , Monocytes (%) (Auto) , Eosinophils (%) (Auto) , Basophils (%) (Auto) , Differential Total Cells Counted 100, Neutrophils % ( Manual) 88H, Lymphocytes % (Manual) 7L, Monocytes % (Manual) 5, Eosinophils % ( Manual) 0, Basophils % (Manual) 0, Band Neutrophils 0, Platelet Estimate Adequate, Platelet Morphology Normal, Red Blood Cell Morphology Normal, Sodium Level 136, Potassium Level 4.4, Chloride Level 100, Carbon Dioxide Level 32, Anion Gap 4L, Blood Urea Nitrogen 33H, Creatinine 1.7H, Estimat Glomerular Filtration Rate 49.7, Glucose Level 112H, Uric Acid 5.3, Calcium Level 9.3, Phosphorus Level 2.8, Magnesium Level 2.6H, Total Bilirubin 0.3, Aspartate Amino Transf (AST/SGOT) 18, Alanine Aminotransferase (ALT/SGPT) 21, Alkaline Phosphatase 61, Total Protein 6.6, Albumin 3.5, Globulin 3.1, Albumin/Globulin Ratio 1.1 Vishnu Orlando MD Sep 07, 2019 20:45
--- NOTE | 2019-09-08 16:37 | Discharge Summary ---
Discharge Summary Discharge Summary _ DATE OF ADMISSION: 09/04/2019 DATE OF DISCHARGE: 09/07/2019 DISCHARGED BY: Dr. Pee Pino CONSULTANTS: Dr. Vishnu Chapa [facility] COURSE: Patient is a 64-year-old male, with history of hypertension, GERD, COPD, AIDS, last CD4 count of 531, viral load less than 20, according to labs drawn last month, presented to ER with complaints of shortness of breath and chest pain for 1 week. Pain was in the anterior chest, associated with cough and clear sputum production. He also has flareup of GERD symptoms. He was taken off PPI recently. Upon evaluation at the ED, patient was given aspirin and nebulizer treatment. EKG and chest x-ray were unremarkable. Blood work showed creatinine elevated to 1.8. Troponin was negative. He was admitted for evaluation of chest pain. He was continued on Tivicay. Prezista was changed to Prezcobix (formulary). He was given short-term antibiotic treatment with Zithromax and Rocephin. He was strongly counseled about smoking cessation. He was given IV Solu-Medrol and O2 support. He was given PRN nebulizer treatment. He was given IV Solu- Medrol. Urine toxicology was positive for THC. He was strongly counseled against illicit drug use. Patient had a longstanding history of intermittent pyrosis, attributed to reflux symptoms. He recently had nausea and vomiting. He had a colonoscopy in 2013 and was told to have multiple polyps. He also had endoscopy in 2012. He was placed back on acid suppression. He was given famotidine. He was given reflux precautions. He was recommended to repeat endoscopy and colonoscopy, which can be done as outpatient. Patient has a history of coronary artery disease, status post left circumflex angioplasty and stent placement at [facility]. Cardiac enzymes were monitored. Troponin was negative. He underwent Lexiscan stress test. Results were nonischemic. Patient was eventually discharged to a SNF. FINAL DIAGNOSES: COPD exacerbation Atypical chest pain most likely from GERD HIV GERD Hypercholesterolemia Acute on chronic renal failure Nicotine dependence Coronary artery disease Leukocytosis, likely steroid related DISPOSITION: DC to SNF DISCHARGE MEDICATIONS: Refer to Discharge Medication List. I have been assigned to complete a discharge summary on this account, I was not involved with the patient's management.--JOHN Rock Jacqueline Robles NP Sep 08, 2019 16:37
== END 2019-09-07 20:00 | DRG 191 ==
LOC: EMR 11:10 → 2E 11:20 → EDBEDREQ 12:06
DX: J44.1 Chronic obstructive pulmonary disease with (acute) exacerbation (principal); B20 Human immunodeficiency virus [HIV] disease; N17.9 Acute kidney failure, unspecified; K21.9 Gastro-esophageal reflux disease without esophagitis; N18.9 Chronic kidney disease, unspecified; I25.10 Atherosclerotic heart disease of native coronary artery without angina pectoris; Z95.5 Presence of coronary angioplasty implant and graft; E78.5 Hyperlipidemia, unspecified; I25.2 Old myocardial infarction; G47.30 Sleep apnea, unspecified; E86.0 Dehydration; E78.00 Pure hypercholesterolemia, unspecified; F17.200 Nicotine dependence, unspecified, uncomplicated; T38.0X5A Adverse effect of glucocorticoids and synthetic analogues, initial encounter; D72.829 Elevated white blood cell count, unspecified; Z79.82 Long term (current) use of aspirin; Z86.010 Personal history of colon polyps; F12.10 Cannabis abuse, uncomplicated
CPT/HCPCS: 36415; 71045; 76770; 78452; 80053; 80061; 80307; 81001; 82550; 82977; 83036; 83735; 83880; 84100; 84300; 84443; 84484; 84550; 85007; 85025; 86140; 86710; 89050; 93005; 93017; 93306; 94640; 94660; 99285; J2785; J7620

== ENCOUNTER 2019-09-21 10:47 | Emergency (ER) | payer MEDICARE, MEDICAID ==
[~2019-09-21] VITALS: Ht 167.6 cm; Wt 59.9 kg
[2019-09-21] VITALS (9 sets, daily range): BP systolic 130–155; BP diastolic 70–102
--- NOTE | 2019-09-21 10:41 | NUR ---
ED Nurse Note: Pt BIBA for SOB and flu like symptoms. Pt CO pain 10/10 from acid reflux and chest pain. Pt reports fever Addendum: 09/21/19 at 1047 by [email or web address] ED Nurse Note: Pt BIBA for SOB and flu like symptoms x 2 days. Pt CO pain 10/10 from acid reflux and chest pain. Pt reports fever, history of COPD, and emphysema. Pt reports using a CPAP and nebulizer at home. EKg obtained.
[~2019-09-21 10:47] MED LIST: ASPIRIN EC81 MG ORAL; AZELASTINE137 MCG/0. NS; AZITHROMYC200 MG/5 M ORAL; CEFTRIAXONE1 G2 IV; CHLORTHALIDONE25 MG ORAL; COMBIVENT RESPIM4 GM IH; CRESTOR40 MG ORAL; LATANOPROST 0.7.5 ML OP; LISINOPRIL10 MG ORAL; METOPROLOL SUCC25 MG ORAL; PREDNISOLO15 MG/5 M1 ORAL; PREZCOBIX 8001 EACH PO; SIMBRINZA 1%-0.28 ML OP; TIVICAY50 MG ORAL; VENTOLIN HFA18 GM INH; VESICARE5 MG ORAL; VITAMIN D31000 UNI4 PO; ZITHROMAX250 MG ORAL
[2019-09-21] MEDS ORDERED: Ipratropium 0.02% Inh Soln 2.5ml UD HHN ONE (11:00)
[2019-09-21] MEDS ORDERED: Solu-MEDROL 125mg Inj IVP ONE (11:00)
[2019-09-21] MEDS ORDERED: Albuterol ud Inhalation HHN ONE (11:00)
[2019-09-21] MEDS ORDERED: Morphine Sulfate 4mg/ml Inj (IV USE ONLY) IVP ONE (11:00)
--- NOTE | 2019-09-21 11:00 | Emergency Room Report ---
History of Present Illness General Chief Complaint: Dyspnea/Respdistress Source: Patient Present Illness HPI Patient presents via EMS with several days of upper respiratory symptoms. He thinks he has oral thrush and has a sore throat. He has a history of COPD and is been coughing and wheezing. The cough has been nonproductive. He has felt feverish without documented temperature. He also has felt chilled. He feels nauseated without any vomiting or diarrhea. He has generalized body aches at this time. The patient did receive a flu vaccination. Pain is rated 10/10 in his neck and throat. Burning. Is worse when he swallows. He denies taking any pain medication. He felt feverish last night but denies documented temperature. This patient states he was taking omeprazole but his doctor stopped this treatment. Patient has HIV but alleges that his disease is controlled. Patient is anxious. No palpitations, nausea, vomiting, diarrhea, dysuria, abdominal pain, joint pain , rashes, depression, visual changes, dizziness, headache. Allergies: Uncoded Allergies: POLLEN (Allergy, Unknown, 09/04/19) Patient History Past Medical History: see triage record Social History: Reports: smoking Social History Narrative at home Reviewed Nursing Documentation: PMH: Agreed; PSxH: Agreed Nursing Documentation-PMH Past Medical History: No History, Except For Hx Cardiac Problems: No - CAD, Stent, AIDS Hx Hypertension: Yes Hx COPD: Yes Hx Cancer: No Hx Gastrointestinal Problems: No Hx Neurological Problems: No Review of Systems All Other Systems: negative except mentioned in HPI Physical Exam Vital Signs Date Time Temp Pulse Resp B/P (MAP) Pulse Ox O2 Delivery O2 Flow Rate FiO2 09/21/19 10:37 98.2 111 20 155/107 (123) 100 Room Air Sp02 EP Interpretation: reviewed, normal General Appearance: well appearing, GCS 15, mild distress - With anxiety Head: normocephalic, atraumatic Eyes: bilateral eye normal inspection, bilateral eye PERRL, bilateral eye EOMI ENT: moist mucus membranes, pharyngeal erythema - With white plaques back of tongue Neck: supple Respiratory: no respiratory distress, wheezing, expiration Cardiovascular #1: tachycardia Cardiovascular #2: 2+ radial (R) Gastrointestinal: normal inspection, normal bowel sounds, non tender, no mass, non-distended, scaphoid Genitourinary: no CVA tenderness Musculoskeletal: back normal, normal range of motion, gait/station normal Neurologic: alert, oriented x3, grossly normal Psychiatric: anxious Skin: no rash, warm/dry Medical Decision Making Diagnostic Impression: Primary Impression: Chest pain Qualified Codes: R07.9 - Chest pain, unspecified Additional Impressions: COPD exacerbation Elevated lactic acid level Renal failure Qualified Codes: N18.2 - Chronic kidney disease, stage 2 (mild) Esophagitis HIV (human immunodeficiency virus infection) Qualified Codes: B20 - Human immunodeficiency virus [HIV] disease ER Course Patient presents with several days of upper respiratory symptoms and generalized body aches. Differential includes influenza, other viral infection , bronchitis, pneumonia, acute myocardial infarction amongst others. Evaluation with EKG, chest x-ray and labs. The patient will be treated with IV hydration, Solu-Medrol, breathing treatments and Zofran with morphine. EKG sinus tachycardia otherwise normal EKG rate 110. Chest x-ray without infiltrate, COPD. Labs with normal white count. Elevated BUN and creatinine. Levels are similar to prior lab values. Troponin negative initially. Elevated lactic acid called and second bolus given. Patient requesting antibiotics. WBC normal and CXR without infiltrate, but h/o COPD. Discussed no indication for antibiotics at this time. Clinically improved but need observation for chest pain and elevated lactic acid. Laboratory Tests Test 09/21/19 11:10 09/21/19 11:49 09/21/19 13:24 09/21/19 13:53 White Blood Count 5.2 K/UL (4.8-10.8) Red Blood Count 5.63 M/UL (4.70-6.10) Hemoglobin 16.2 G/DL (14.2-18.0) Hematocrit 48.9 % (42.0-52.0) Mean Corpuscular Volume 87 FL (80-99) Mean Corpuscular Hemoglobin 28.8 PG (27.0-31.0) Mean Corpuscular Hemoglobin Concent 33.2 G/DL (32.0-36.0) Red Cell Distribution Width 11.3 % (11.6-14.8) L Platelet Count 128 K/UL (150-450) L Mean Platelet Volume 7.6 FL (6.5-10.1) Neutrophils (%) (Auto) % (45.0-75.0) Lymphocytes (%) (Auto) % (20.0-45.0) Monocytes (%) (Auto) % (1.0-10.0) Eosinophils (%) (Auto) % (0.0-3.0) Basophils (%) (Auto) % (0.0-2.0) Differential Total Cells Counted 100 Neutrophils % (Manual) 71 % (45-75) Lymphocytes % (Manual) 16 % (20-45) L Monocytes % (Manual) 13 % (1-10) H Eosinophils % (Manual) 0 % (0-3) Basophils % (Manual) 0 % (0-2) Band Neutrophils 0 % (0-8) Platelet Estimate Decreased L Platelet Morphology Normal Red Blood Cell Morphology Normal Prothrombin Time 11.4 SEC (9.30-11.50) Prothrombin Time INR 1.1 (0.9-1.1) PTT 25 SEC (23-33) Lactic Acid Level 2.30 mmol/L (0.4-2.0) H 1.50 mmol/L (0.66-2.22) Troponin I 0.002 ng/mL (0.000-0.056) Sodium Level 142 MMOL/L (136-145) Potassium Level 3.6 MMOL/L (3.5-5.1) Chloride Level 101 MMOL/L (98-107) Carbon Dioxide Level 29 MMOL/L (21-32) Anion Gap 12 mmol/L (5-15) Blood Urea Nitrogen 37 mg/dL (7-18) H Creatinine 1.8 MG/DL (0.55-1.30) H Estimate Glomerular Filtration Rate 46.5 mL/min (>60) Glucose Level 113 MG/DL (74-106) H Calcium Level 10.6 MG/DL (8.5-10.1) H Total Bilirubin 0.8 MG/DL (0.2-1.0) Aspartate Amino Transferase (AST) 33 U/L (15-37) Alanine Aminotransferase (ALT) 54 U/L (12-78) Alkaline Phosphatase 52 U/L (46-116) Total Creatine Kinase 310 U/L (26-308) H Pro-B-Type Natriuretic Peptide 72 pg/mL (0-125) Total Protein 7.1 G/DL (6.4-8.2) Albumin 3.6 G/DL (3.4-5.0) Globulin 3.5 g/dL Albumin/Globulin Ratio 1.0 (1.0-2.7) Urine Color Pale yellow Urine Appearance Clear Urine pH 7 (4.5-8.0) Urine Specific [place] 1.010 (1.005-1.035) Urine Protein 2+ (NEGATIVE) H Urine Glucose (UA) Negative (NEGATIVE) Urine Ketones 2+ (NEGATIVE) H Urine Blood 1+ (NEGATIVE) H Urine Nitrite Negative (NEGATIVE) Urine Bilirubin Negative (NEGATIVE) Urine Urobilinogen Normal MG/DL (0.0-1.0) Urine Leukocyte Esterase 1+ (NEGATIVE) H Urine RBC 0-2 /HPF (0 - 0) H Urine WBC 2-4 /HPF (0 - 0) Urine Squamous Epithelial Cells Occasional /LPF Urine Bacteria Occasional /HPF (NONE) Microbiology Date/Time Source Procedure Growth Status 09/21/19 11:16 Nasal Nares - Final Complete 09/21/19 11:16 Nasal Nares - Final Complete EKG Diagnostic Results Rate: tachycardiac Rhythm: NSR ST Segments: no acute changes Rhythm Strip Diag. Results EP Interpretation: yes Rhythm: no PVC's, no ectopy, other - Sinus tachycardia Chest X-Ray Diagnostic Results Chest X-Ray Diagnostic Results : Chest X-Ray Ordered: Yes # of Views/Limited/Complete: 1 View Indication: Other EP Interpretation: Yes Interpretation: no consolidation, no effusion, no pneumothorax Impression: No acute disease Last Vital Signs Date Time Temp Pulse Resp B/P (MAP) Pulse Ox O2 Delivery O2 Flow Rate FiO2 09/21/19 19:58 105 20 100 Nasal Cannula 2.0 28 110 22 100 09/21/19 17:05 99.0 133/78 (96) Status: improved Disposition: PLACE IN OBSERVATION Condition: Serious Vishnu Sanford MD Sep 21, 2019 11:00
--- NOTE | 2019-09-21 11:05 | NUR ---
ED Nurse Note: RT AT BEDSIDE
[2019-09-21 11:39] LABS: HEMATOCRIT 48.9 % (42.0-52.0); HEMOGLOBIN 16.2 G/DL (14.2-18.0); MEAN CORPUSCULAR VOLUME 87 FL (80-99); PLATELET COUNT 128 K/UL (150-450); RED BLOOD COUNT 5.63 M/UL (4.70-6.10); RED CELL DISTRIBUTION WIDTH 11.3 % (11.6-14.8); WHITE BLOOD COUNT 5.2 K/UL (4.8-10.8)
[2019-09-21 11:44] LABS: INR 1.1 (0.9-1.1)
--- NOTE | 2019-09-21 11:53 | NUR ---
ED Nurse Note: Venipucture to right forearm using 22g performed. Blood sample collected and sent. Applied clean, dry dressing.
[2019-09-21 12:19] LABS: ANION GAP 12 mmol/L (5-15); BLOOD UREA NITROGEN 37 mg/dL (7-18); CALCIUM 10.6 MG/DL (8.5-10.1); CARBON DIOXIDE 29 MMOL/L (21-32); CHLORIDE 101 MMOL/L (98-107); CREATININE 1.8 MG/DL (0.55-1.30); POTASSIUM 3.6 MMOL/L (3.5-5.1); SODIUM 142 MMOL/L (136-145)
--- NOTE | 2019-09-21 12:30 | NUR ---
ED Nurse Note: Xray at bedside
[2019-09-21 12:31] LABS: ALANINE AMINOTRANSFERASE 54 U/L (12-78); ALBUMIN 3.6 G/DL (3.4-5.0); ALKALINE PHOSPHATASE 52 U/L (46-116); ASPARTATE AMINO TRANSFERASE 33 U/L (15-37); BILIRUBIN,TOTAL 0.8 MG/DL (0.2-1.0); CREATINE KINASE 310 U/L (26-308)
--- NOTE | 2019-09-21 12:33 | Diagnostic Imaging Report ---
Indication: Cough Technique: XRAY Chest 1v Comparison: None Findings: Heart size and mediastinal contours are within normal limits for AP technique and stable compared to the prior exam. There is no focal airspace consolidation, pneumothorax or pleural effusion. Osseous structures demonstrate no acute abnormality. Impression: No radiographic evidence of acute cardiopulmonary disease. Specifically, no focal airspace consolidation as questioned clinically.
--- NOTE | 2019-09-21 12:41 | NUR ---
ED Nurse Note: PATIENT RESTING IN BED, USING CELL PHONE. NO FACIAL GRIMACING OR GUARDING NOTED. INSTRUCTED PATIENT TO KEEP MASK ON. BED IN LOWEST POSITION .
[2019-09-21] MEDS ORDERED: Mylanta II UD 30ml ORAL ONE (13:45)
[2019-09-21 13:51] LABS: APPEARANCE,URINE CLEAR; BILIRUBIN, URINE NEGATIVE (NEGATIVE); COLOR,URINE PALE YELLOW; GLUCOSE, URINE (UA) NEGATIVE (NEGATIVE); KETONES,URINE 2+ (NEGATIVE); LEUKOCYTE ESTERASE ,URINE 1+ (NEGATIVE); NITRITE,URINE NEGATIVE (NEGATIVE); PH,URINE 7 (4.5-8.0); PROTEIN,URINE 2+ (NEGATIVE); UROBILINOGEN,URINE NORMAL MG/DL (0.0-1.0)
[2019-09-21] MEDS ORDERED: Guaifenesin/DM 10ml syrup ORAL STA (14:13)
[2019-09-21] MEDS ORDERED: Nystatin Susp 500,000 units/5ml ORAL STA (14:13)
--- NOTE | 2019-09-21 14:45 | NUR ---
ED Nurse Note: Pt CO indigestion, ERMD aware, awaiting orders.
--- NOTE | 2019-09-21 15:00 | NUR ---
ED Nurse Note: DR. Banks at bedside
--- NOTE | 2019-09-21 17:00 | NUR ---
NURSE NOTES: Pt transferred from ED via [facility] with ED RN. Belonging list reviewed with ED RN. Pt did not come with any meds. IV site in LFA20G SL patent and asymptomatic. No c/o pain. Pt seen by Dr. Florian. All admission orders obtained. Denied SOB. On 2LPM via N/C. Side railx1 up. Bed in the lowest position and locked. personnel monitor applied. Noted sinus tachycardia with HR:118. Made Dr. Florian aware. Call light within easy reach. Will continue to plan of care.
--- NOTE | 2019-09-21 17:00 | NUR ---
ED Nurse Note: Pt resting in bed, vital signs in stable condition, aao x 4.
--- NOTE | 2019-09-21 17:30 | NUR ---
ED Nurse Note: Report given to Sergio, RN and pt transferred observation unit with EMT and RN, vital signs in stable condition.
[2019-09-21] MEDS: guaiFENesin ER 600mg tab ORAL SCH (18:25)
[2019-09-21] MEDS: Nystatin Susp 500,000 units/5ml ORAL SCH ×2 (18:25→20:13)
--- NOTE | 2019-09-21 19:30 | NUR ---
NURSE NOTES: RECEIVED PATIENT LYING IN BED, AWAKE, ALERT/ORIENTED X4, VERBALLY RESPONSIVE, DENIES PAIN. NO SIGNS AND SYMPTOMS OF ACUTE CARDIO RESPIRATORY DISTRESS/SHORTNESS OF BREATH, DENIES CHEST PAIN, NOTED WITH EDEMA TO BILATERAL LOWER EXTREMITIES, NON PITTING, ENCOURAGED ELEVATION. NOTED WITH DRY NON PRODUCTIVE COUGH. CONTINUE ON DISTRICT CAPTAIN. 02 2L VIA NASAL CANULA. ABDOMEN SOFT/NON DISTENDED/BOWEL SOUNDS AUDIBLE, DENIES DIARRHEA/CONSTIPATION, BATHROOM PRIVILEGES. SIDE RAILS UP X2 FOR MOBILITY, BED IN LOWEST POSITION FOR SAFETY, ENCOURAGED PATIENT TO UTILIZE CALL LIGHT FOR ASSISTANCE, VERBALIZED UNDERSTANDING. FREQUENT ROUNDING FOR SAFETY/NEEDS. NAD.
--- NOTE | 2019-09-21 19:31 | NUR ---
HAND-OFF: [facility].
[2019-09-21] MEDS: Albuterol/Ipratropium 3ml neb HHN SCH ×2 (19:53→23:00)
[2019-09-21] MEDS: Doxycycline Monohydrate 100mg ORAL SCH (20:12)
[2019-09-21] MEDS: Guaifenesin/DM 10ml syrup ORAL PRN (20:12)
[2019-09-21] MEDS: Solu-MEDROL 40mg Inj IVP SCH (20:22)
--- NOTE | 2019-09-21 21:30 | History and Physical Report ---
DATE OF ADMISSION: 09/21/2019 CHIEF COMPLAINT AND REASON FOR HOSPITALIZATION: The patient admitted with cough, thrush, chest pain, COPD, history of coronary artery disease. HISTORY OF PRESENT ILLNESS: The patient was recently hospitalized at [facility]. He has a history of hypertension, COPD, coronary artery disease, prior stenting in 2004 and [place] in 2004. He also has a history of HIV and gastroesophageal reflux, hyperlipidemia. He presents after being discharged from intermediate facility on 09/19/2019. He presents with increasing cough, sore throat, and chest pain that kept him up all night on and off through the night. He describes the chest pain as sharp, in nature in the sternal and pericardial area, this is nonexertional. He did have a negative Lexiscan stress test showing nonischemic disease on his recent hospitalization August 2019. ALLERGIES: To pollen. MEDICATIONS: Reviewed on the computer include Ventolin inhaler or Combivent inhaler, DuoNeb via HHN, aspirin, , Simbrinza eye drops, chlorthalidone, vitamin D3, Prezcobix, Descovy, latanoprost eye drops, lisinopril, metoprolol, Crestor, VESIcare. HABITS: He is a current cigarette smoker as well as marijuana smoker. He denies alcohol use or other drugs. PAST SURGICAL HISTORY: Include cataract surgery and PTCA. PAST MEDICAL HISTORY: Include kidney stones. SYSTEM REVIEW: HEAD, EYES, EARS, NOSE, THROAT: History of glaucoma or cataracts. He has poor vision in his left eye. Right eye is 20/20. Hearing is good. ENDOCRINE: No diabetes or thyroid disease . PULMONARY: COPD as above. He continues to smoke. No known TB. CARDIAC: See history of present illness. GASTROINTESTINAL: He has had some nausea but mostly GERD. No hematochezia or melena. GENITOURINARY: No dysuria or hematuria. At this time, he has had kidney stones in the distant past. MUSCULOSKELETAL: No severe joint pain. INFECTIOUS: History of HIV with very low CD4 count apparently. PHYSICAL EXAMINATION: GENERAL: The patient is lying in bed, somewhat anxious but in no acute distress. VITAL SIGNS: Temperature 98.2, pulse 111, respiratory rate 28, blood pressure 139/90, pulse oximetry 98% on room air. HEAD, EYES, EARS, NOSE, THROAT: Sclerae are nonicteric. Ocular motions intact in all directions. Oral mucosa is moist. There is a slight whitish exudate. NECK: No adenopathy. LUNGS: Few faint rhonchi, no distress. HEART: Rhythm is regular and tachycardic. There is a 1 to 2/6 systolic ejection murmur. ABDOMEN: Soft without organomegaly or masses. EXTREMITIES: No edema, cyanosis, or clubbing. NEUROLOGIC: He is alert and oriented. Cranial nerves are intact. PERTINENT LABORATORY DATA: Show chest x-ray with no active disease. White count 5.2, hemoglobin 16.2. Electrolytes are normal. BUN 37, creatinine 1.8, glucose 113. Lactic acid 2.3 and 1.5. Calcium is 10.6. CK is 310 total. Troponin 0.002. IMPRESSION: 1. COPD with exacerbation. 2. Chest pain, atypical with a recent negative Lexiscan scan, perhaps his chest pain is due to coughing and chest wall pain. 3. Gastroesophageal reflux. 4. HIV positive. 5. Elevated lactate of uncertain clinical significance. 6. Mild elevation of calcium which possibly due to vitamin D analogs. PLAN: The patient will be observed on a patient monitor. We will continue beta-blockers. Pulmonary care and symptomatic care. The patient will have repeat troponin and rule out [place]. We will get Cardiac and Pulmonary consultations. Treat him for his thrush. Give him comfort measures. Abdi Florian M.D. DR: Li JOB#: [id number] CC:
[2019-09-22] VITALS: BP 130/71
[2019-09-22] MEDS: Guaifenesin/DM 10ml syrup ORAL PRN ×2 (00:32→04:48)
--- NOTE | 2019-09-22 01:56 | Pulmonology Progress Note ---
Assessment/Plan Assessment/Plan Pulmonary Consultation HPI Patient is a 64-year-old male with past medical history of COPD, and AIDS, last CD4 count of 531, viral load less than 20, GERD, admitted c/o shortness of breath wheezing, possible recent viral infection, noted to have oral thrush in the ED. Has a cough with clear sputum production, He denies fevers, hemoptysis , syncope, leg swelling, any other symptoms. Recent admission with chest pain Allergies: POLLEN Past Medical History: Chronic Obstructive Pulmonary Disease, AIDS, GERD All Other Systems: negative except mentioned in HPI Physical Exam Vital Signs noted General Appearance: no apparent distress, alert, non-toxic Head: normocephalic Eyes: bilateral eye normal inspection, bilateral eye PERRL, bilateral eye EOMI ENT: normal ENT inspection, hearing grossly normal, oral thrush Neck: normal inspection, full range of motion, supple, supple/symm/no masses, no LN Respiratory: bilateral wheezing, chest symmetrical Cardiovascular: normal peripheral pulses, regular rate, rhythm, HS1, HS2 normal Gastrointestinal: normal inspection, non tender, soft, no mass, no guarding, no rebound Musculoskeletal: back normal, normal range of motion, no calf tenderness, gait/ station normal, non-tender Neurologic: alert, motor strength/tone normal, hotel concierge III-XII nml as tested, sensory intact, responsive, speech normal Impression: Chronic Obstructive Pulmonary Disease Exacerbation Bronchitis HIV with last CD4 count 531, on ARV perviously Oral Thrush GERD Plan IV Solumedrol wean as tolerated PO Doxycycline HHN O2 PRN 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 Mycostatin s+s PPX Monitor labs EKG: Rate: normal Rhythm: NSR ST Segments: no acute changes Chest X-Ray: no consolidation, no effusion, no pneumothorax, no acute cardiopulmonary disease Subjective ROS Limited/Unobtainable: No Allergies: Uncoded Allergies: POLLEN (Allergy, Unknown, 09/04/19) Objective Last 24 Hour Vital Signs Date Time Temp Pulse Resp B/P (MAP) Pulse Ox O2 Delivery O2 Flow Rate FiO2 09/22/19 00:00 98.5 18 130/71 (90) 96 09/21/19 20:00 2.0 09/21/19 20:00 99.5 97 18 133/70 (91) 95 09/21/19 19:58 105 20 100 Nasal Cannula 2.0 28 110 22 100 09/21/19 17:33 112 09/21/19 17:08 Nasal Cannula 2.0 09/21/19 17:05 99.0 105 20 133/78 (96) 97 09/21/19 15:00 98.2 111 28 139/90 98 Room Air 21 09/21/19 14:30 98.4 113 21 130/84 98 Room Air 21 09/21/19 14:00 98.4 122 21 155/92 98 Room Air 21 09/21/19 12:00 98.4 110 19 142/88 98 Room Air 21 09/21/19 11:17 110 26 100 Room Air 21 109 26 100 09/21/19 11:00 98.3 114 26 145/102 100 Room Air 09/21/19 10:48 98.4 106 24 145/102 100 Room Air 09/21/19 10:48 106 24 Room Air 09/21/19 10:37 98.2 111 20 155/107 (123) 100 Room Air Intake and Output 09/21/19 09/22/19 19:00 07:00 Intake Total 200 ml 240 ml Balance 200 ml 240 ml Intake Oral 200 ml 240 ml # Voids 1 Microbiology Date/Time Source Procedure Growth Status 09/21/19 11:16 Nasal Nares - Final Complete 09/21/19 11:16 Nasal Nares - Final Complete Laboratory Tests 09/21/19 11:10: White Blood Count 5.2, Red Blood Count 5.63, Hemoglobin 16.2, Hematocrit 48.9, Mean Corpuscular Volume 87, Mean Corpuscular Hemoglobin 28.8, Mean Corpuscular Hemoglobin Concent 33.2, Red Cell Distribution Width 11.3L, Platelet Count 128L , Mean Platelet Volume 7.6, Neutrophils (%) (Auto) , Lymphocytes (%) (Auto) , Monocytes (%) (Auto) , Eosinophils (%) (Auto) , Basophils (%) (Auto) , Differential Total Cells Counted 100, Neutrophils % (Manual) 71, Lymphocytes % ( Manual) 16L, Monocytes % (Manual) 13H, Eosinophils % (Manual) 0, Basophils % ( Manual) 0, Band Neutrophils 0, Platelet Estimate DecreasedL, Platelet Morphology Normal, Red Blood Cell Morphology Normal, Prothrombin Time 11.4, Prothromb Time International Ratio 1.1, Activated Partial Thromboplast Time 25, Lactic Acid Level 2.30H, Troponin I 0.002 09/21/19 11:49: Sodium Level 142, Potassium Level 3.6, Chloride Level 101, Carbon Dioxide Level 29, Anion Gap 12, Blood Urea Nitrogen 37H, Creatinine 1.8H, Estimat Glomerular Filtration Rate 46.5, Glucose Level 113H, Calcium Level 10.6H, Total Bilirubin 0.8, Aspartate Amino Transf (AST/SGOT) 33, Alanine Aminotransferase (ALT/SGPT) 54, Alkaline Phosphatase 52, Total Creatine Kinase 310H, Pro-B-Type Natriuretic Peptide 72, Total Protein 7.1, Albumin 3.6, Globulin 3.5, Albumin/Globulin Ratio 1.0 09/21/19 13:24: Urine Color Pale yellow, Urine Appearance Clear, Urine pH 7, Urine Specific [place] 1.010, Urine Protein 2+H, Urine Glucose (UA) Negative, Urine Ketones 2+H , Urine Blood 1+H, Urine Nitrite Negative, Urine Bilirubin Negative, Urine Urobilinogen Normal, Urine Leukocyte Esterase 1+H, Urine RBC 0-2H, Urine WBC 2-4 , Urine Squamous Epithelial Cells Occasional, Urine Bacteria Occasional 09/21/19 13:53: Lactic Acid Level 1.50 Current Medications Medications (Trade) Dose Ordered Sig/Vaishnavi Route PRN Reason Start Time Stop Time Status Last Admin Dose Admin Acetaminophen (Tylenol) 650 mg Q4H PRN ORAL Mild Pain/Temp > 100.5 09/21/19 17:45 10/21/19 17:44 Albuterol/ Ipratropium (Albuterol/ Ipratropium) 3 ml Q4HRT HHN 09/21/19 19:00 09/26/19 18:59 09/21/19 19:53 Aspirin (Ecotrin) 81 mg DAILY ORAL 09/22/19 09:00 10/22/19 08:59 Doxycycline Monohydrate (Doxycycline Monohydrate) 100 mg EVERY 12 HOURS ORAL 09/21/19 21:00 09/28/19 20:59 09/21/19 20:12 Guaifenesin (Mucinex ER) 600 mg TWICE A DAY ORAL 09/21/19 18:00 10/21/19 17:59 09/21/19 18:25 Guaifenesin/ Dextromethorphan (Robitussin DM Syrup) 10 ml Q4H PRN ORAL For Cough 09/21/19 19:31 10/21/19 19:30 09/22/19 00:32 Methylprednisolone Sodium Succinate (Solu-MEDROL) 30 mg EVERY 12 HOURS IVP 09/21/19 21:00 10/21/19 20:59 09/21/19 20:22 Nystatin (Nystatin) 5 ml QID ORAL 09/21/19 18:00 09/28/19 17:59 09/21/19 20:13 Ondansetron HCl (Zofran) 4 mg Q6H PRN IVP Nausea & Vomiting 09/21/19 17:39 10/21/19 17:38 Pantoprazole (Protonix) 40 mg DAILY ORAL 09/22/19 09:00 10/22/19 08:59 Vishnu Orlando MD Sep 22, 2019 01:56
[2019-09-22] MEDS: Albuterol/Ipratropium 3ml neb HHN SCH ×2 (03:00→06:35)
[2019-09-22 04:00] VITALS: BP 150/105
--- NOTE | 2019-09-22 06:39 | NUR ---
NURSE NOTES: RESTED WELL, NO SIGNIFICANT CHANGE OF CONDITION NOTED THROUGHOUT THE NIGHT. SAFETY MAINTAINED. NAD.
--- NOTE | 2019-09-22 08:04 | NUR ---
HAND-OFF: Report given to CHARLES SNOW.
--- NOTE | 2019-09-22 08:13 | NUR ---
NURSE NOTES: Received report from CHARLES Washington. Patient in bed resting, no active s/s cardiac, respiratory distress noticed at this time. Patient AOx4, SR with HR 84. IV on left FA 20G, asymptomatic, patent, intact. Bed in lowest position, side rails upx2, call light within reach. Will continue to monitor.
[2019-09-22 08:22] LABS: BASOPHILS % (AUTO) 1.1 % (0.0-2.0); EOSINOPHILS % (AUTO) 0.2 % (0.0-3.0); HEMATOCRIT 44.8 % (42.0-52.0); MEAN CORPUSCULAR VOLUME 87 FL (80-99); MONOCYTES % (AUTO) 15.3 % (1.0-10.0); NEUTROPHILS % (AUTO) 73.3 % (45.0-75.0); PLATELET COUNT 130 K/UL (150-450); RED BLOOD COUNT 5.12 M/UL (4.70-6.10); RED CELL DISTRIBUTION WIDTH 11.2 % (11.6-14.8); WHITE BLOOD COUNT 4.6 K/UL (4.8-10.8)
[2019-09-22] MEDS ORDERED: Aspirin EC 81mg tab ORAL SCH (09:00)
[2019-09-22] MEDS: Solu-MEDROL 40mg Inj IVP SCH (09:00)
[2019-09-22] MEDS: Doxycycline Monohydrate 100mg ORAL SCH (09:09)
[2019-09-22] MEDS: Nystatin Susp 500,000 units/5ml ORAL SCH (09:09)
[2019-09-22] MEDS: guaiFENesin ER 600mg tab ORAL SCH (09:09)
--- NOTE | 2019-09-22 09:25 | NUR ---
AMA: SEE AMA FORM.
--- NOTE | 2019-09-22 09:25 | NUR ---
NURSE NOTES: Patient stated want to sign AMA, Patient AOx4, risks and disadvantages explained. IV removed, monitoring and evaluation advisor returned to compliance monitor. ID band removed and placed in shredder. Educated to seek medical advice when s/s of chest pain. Patient left with all belongings.
[2019-09-22 09:41] LABS: ALANINE AMINOTRANSFERASE 58 U/L (12-78); ALBUMIN 3.5 G/DL (3.4-5.0); ALBUMIN/GLOBULIN RATIO 1.1 (1.0-2.7); ALKALINE PHOSPHATASE 52 U/L (46-116); ANION GAP 11 mmol/L (5-15); ASPARTATE AMINO TRANSFERASE 33 U/L (15-37); BILIRUBIN,TOTAL 0.4 MG/DL (0.2-1.0); BLOOD UREA NITROGEN 34 mg/dL (7-18); CALCIUM 8.7 MG/DL (8.5-10.1); CARBON DIOXIDE 28 MMOL/L (21-32); CHLORIDE 102 MMOL/L (98-107); CREATININE 1.7 MG/DL (0.55-1.30); POTASSIUM 4.3 MMOL/L (3.5-5.1); SODIUM 141 MMOL/L (136-145)
--- NOTE | 2019-09-22 10:30 | NUR ---
NURSE NOTES: Dr. Florian at the nursing station, made aware patient AMA.
--- NOTE | 2019-09-24 13:01 | Discharge Summary ---
DATE OF ADMISSION: 09/21/2019 DATE OF DISCHARGE: 09/22/2019 PERTINENT HISTORY: See my dictated History and Physical. The patient is admitted for cough, thrush, chest pain, COPD. PERTINENT PHYSICAL FINDINGS: See the dictated History and Physical. COURSE IN THE HOSPITAL: The patient was observed. Initial lab studies with a negative chest x-ray. White count 5.2 and troponin 0.002. Borderline elevated lactic acid. The patient was observed on a cardiac regimen and treatment for COPD. He left AMA early in the morning on 09/22/2019. FINAL DIAGNOSES: 1. COPD with exacerbation. 2. Chest pain atypical with a recent negative Lexiscan scan. 3. History of prior PCI to coronary arteries. 4. Gastroesophageal reflux. 5. Human immunodeficiency virus positive. 6. Mild elevation of lactate of uncertain clinical significance. COURSE IN THE HOSPITAL: The patient was stable and left the hospital AMA. Abdi Florian M.D. DR: BIJAN JOB#: [id number] CC:
== END 2019-09-22 09:29 | disposition left against medical advice (07) ==
LOC: EDBD 10:47 → EMR 11:15 → 2E 13:45 → EDBEDREQ 15:41
DX: I13.10 Hypertensive heart and chronic kidney disease without heart failure, with stage 1 through stage 4 chronic kidney disease, or unspecified chronic kidney disease (principal); J44.1 Chronic obstructive pulmonary disease with (acute) exacerbation; B20 Human immunodeficiency virus [HIV] disease; K20.9 Esophagitis, unspecified; N18.2 Chronic kidney disease, stage 2 (mild); R00.0 Tachycardia, unspecified; K21.9 Gastro-esophageal reflux disease without esophagitis; B37.0 Candidal stomatitis; Z95.5 Presence of coronary angioplasty implant and graft; I25.2 Old myocardial infarction; E78.5 Hyperlipidemia, unspecified; Z79.899 Other long term (current) drug therapy; F17.210 Nicotine dependence, cigarettes, uncomplicated; R07.9 Chest pain, unspecified; R79.89 Other specified abnormal findings of blood chemistry; E83.52 Hypercalcemia
CPT/HCPCS: 36415; 71045; 80053; 81003; 82550; 83605; 83880; 84484; 85007; 85025; 85610; 85730; 86710; 87081; 93005; 94640; 96361; 96374; 96375; 99285; G0378; J2270; J2405; J2920; J2930; J7030; S0028; J7620